=== PATIENT | male | born 1985 | race Caucasian/White ===

== ENCOUNTER 2017-10-02 10:31 | Inpatient (IN) | payer SELFPAY ==
--- NOTE | 2017-10-02 11:11 | ER Document Report ---
ED General - General Chief Complaint: Chest Pain Stated Complaint: BREATHING ISSUES Time Seen by Provider: 10/02/17 10:52 Mode of Arrival: Ambulatory Information source: Patient Notes: 32-year-old male presents with complaints of shortness of breath over the past 3 -4 days associated with chest pain chest tightness. Patient admits to productive cough. He denies any DVT or PE risk factors except that he travels an hour and a half daily back and forth to work TRAVEL OUTSIDE OF THE [place] IN LAST 30 DAYS: No - HPI Onset: Last week Onset/Duration: Persistent Quality of pain: Achy, Pressure Severity: Moderate Pain Level: 3 Associated symptoms: Chest pain, Productive cough, Shortness of breath Exacerbated by: Movement, Walking Relieved by: Denies Similar symptoms previously: No Recently seen / treated by doctor: No - Related Data Allergies/Adverse Reactions: No Known Allergies Allergy (Unverified 10/02/17 10:33) Past Medical History - Social History Smoking Status: Never Smoker Cigarette use (# per day): No Chew tobacco use (# tins/day): No Smoking Education Provided: No Family History: Reviewed & Not Pertinent Review of Systems - Review of Systems Notes: REVIEW OF SYSTEMS: CONSTITUTIONAL : Denies fever, chills, or sweats. Denies recent illness. EENT: Denies eye, ear, throat, or mouth pain or symptoms. Denies nasal or sinus congestion or discharge. Denies throat, tongue, or mouth swelling or difficulty swallowing. CARDIOVASCULAR: Admits to chest pain. RESPIRATORY: Admits cough shortness of breath GASTROINTESTINAL: Denies abdominal pain or distention. Denies nausea, vomiting , or diarrhea. Denies blood in vomitus, stools, or per rectum. Denies black, tarry stools. Denies constipation. GENITOURINARY: Denies difficulty urinating, painful urination, burning, frequency, blood in urine, or discharge. MUSCULOSKELETAL: Denies back or neck pain or stiffness. Denies joint pain or swelling. SKIN: Denies rash, lesions or sores. HEMATOLOGIC : Denies easy bruising or bleeding. LYMPHATIC: Denies swollen, enlarged glands. NEUROLOGICAL: Denies confusion or altered mental status. Denies passing out or loss of consciousness. Denies dizziness or lightheadedness. Denies headache. Denies weakness or paralysis or loss of use of either side. Denies problems with gait or speech. Denies sensory loss, numbness, or tingling. Denies seizures. PSYCHIATRIC: Denies anxiety or stress. Denies depression, suicidal ideation, or homicidal ideation. ALL OTHER SYSTEMS REVIEWED AND NEGATIVE. Dictation was performed using [employer] voice recognition software PHYSICAL EXAMINATION: GENERAL: Well-appearing, well-nourished and in no acute distress. HEAD: Atraumatic, normocephalic. EYES: Pupils equal round and reactive to light, extraocular movements intact, sclera anicteric, conjunctiva are normal. ENT: Nares patent, oropharynx clear without exudates. Moist mucous membranes. NECK: Normal range of motion, supple without lymphadenopathy LUNGS: Intermittent rhonchi HEART: Tachycardic ABDOMEN: Soft, nontender, nondistended abdomen. No guarding, no rebound. No masses appreciated. Musculoskeletal: Normal range of motion, no pitting or edema. No cyanosis. NEUROLOGICAL: Cranial nerves grossly intact. Normal speech, normal gait. Normal sensory, motor exams PSYCH: Normal mood, normal affect. SKIN: Warm, Dry, normal turgor, no rashes or lesions noted. Physical Exam - Vital signs Vitals: Temp Pulse Resp BP Pulse Ox 98.2 F 122 H 26 H 161/92 H 83 L 10/02/17 10:40 10/02/17 10:40 10/02/17 10:40 10/02/17 10:40 10/02/17 10:40 Course - Re-evaluation Re-evalutation: 10/02/17 11:20 EKG is consistent with sinus tachycardia rate 124 QT is 324 QTc 466, patient is noted to have signs of LVH Given the patient hypoxemia tachycardia tachypnea my initial concern is for a pulmonary emboli, given the high risk of this and elevated troponin with no dissection noted on the chest x-ray heparin bolus and drip was started high-dose 10/02/17 13:[address] Gregory, he will consult given the CT findings which notes diffuse pulmonary nodules, this may be atypical pneumonia patient will be started on antibiotics at this time 10/02/17 14:45 Patient admitted as sepsis - Vital Signs Vital signs: Temp Pulse Resp BP Pulse Ox 98.2 F 122 H 39 H 175/93 H 95 10/02/17 10:40 10/02/17 10:40 10/02/17 10:57 10/02/17 10:57 10/02/17 10:57 - Laboratory Result Diagrams: 10/02/17 14:09 10/02/17 10:53 Laboratory results interpreted by me: 10/02/17 10/02/17 10/02/17 10:53 10:53 10:53 WBC 17.3 H RDW 14.7 H Seg Neutrophils % 82.5 H Lymphocytes % 9.9 L Absolute Neutrophils 14.3 H Creatine Kinase 1029 H CK-MB (CK-2) 16.00 H NT-Pro-B Natriuret Pep 1170 H - Diagnostic Test Radiology reviewed: Image reviewed - CTA consistent with atypical pneumonia, Reports reviewed Critical Care Note - Critical Care Note Total time excluding time spent on procedures (mins): 55 Comments: 55 minutes of critical care time spent in direct contact evaluating and reevaluating the patient, treating symptoms, reviewing labs and studies and speaking with family and consultants excluding any procedures Discharge - Discharge Clinical Impression: Hypoxemia Sepsis Qualifiers: Sepsis type: sepsis due to unspecified organism Qualified Code(s): A41.9 - Sepsis, unspecified organism Pneumonia Qualifiers: Pneumonia type: due to unspecified organism Laterality: bilateral Lung location : unspecified part of lung Qualified Code(s): J18.9 - Pneumonia, unspecified organism Condition: Stable Disposition: ADMITTED INPATIENT Admitting Provider: Hospitalist Unit Admitted: [facility]
[2017-10-02 11:26] LABS: ABSOLUTE BASOPHILS # (AUTO) 0.1 10^3/uL (0.0-0.2); ABSOLUTE LYMPHOCYTES (AUTO) 1.7 10^3/uL (0.5-4.7); ABSOLUTE MONOCYTES (AUTO) 1.2 10^3/uL (0.1-1.4); ABSOLUTE NEUT (AUTO) 14.3 10^3/uL (1.7-8.2); BASOPHILS % (AUTO) 0.6 % (0-2); HEMATOCRIT 43.5 % (37.9-51.0); HEMOGLOBIN 14.4 g/dL (13.5-17.0); LYMPHOCYTES % (AUTO) 9.9 % (13-45); MEAN CORPUSCULAR HEMOGLOBIN 27.7 pg (27.0-33.4); MEAN CORPUSCULAR HGB CONC 33.2 g/dL (32.0-36.0); MEAN CORPUSCULAR VOLUME 84 fl (80-97); PLATELET COUNT 373 10^3/uL (150-450); RED BLOOD COUNT 5.21 10^6/uL (4.35-5.55); RED CELL DISTRIBUTION WIDTH 14.7 % (11.5-14.0); SEGMENTED NEUTROPHILS % (AUTO) 82.5 % (42-78); TOTAL CELLS COUNTED % (AUTO) 100 %; WHITE BLOOD COUNT 17.3 10^3/uL (4.0-10.5)
[2017-10-02 11:45] LABS: ALANINE AMINOTRANSFERASE 43 U/L (21-72); ALBUMIN 3.7 g/dL (3.5-5.0); ALKALINE PHOSPHATASE 78 U/L (38-126); ANION GAP 13 (5-19); ASPARTATE AMINO TRANSFERASE 55 U/L (17-59); BILIRUBIN,DIRECT 0.4 mg/dL (0.0-0.4); BILIRUBIN,TOTAL 0.7 mg/dL (0.2-1.3); BLOOD UREA NITROGEN 10 mg/dL (7-20); CALCIUM 9.2 mg/dL (8.4-10.2); CARBON DIOXIDE 25 mmol/L (22-30); CHLORIDE 101 mmol/L (98-107); CREATINE KINASE 1029 U/L (55-170); GLUCOSE 108 mg/dL (75-110); POTASSIUM 4.5 mmol/L (3.6-5.0); SODIUM 138.9 mmol/L (137-145); TOTAL PROTEIN 6.8 g/dL (6.3-8.2)
[2017-10-02 12:00] LABS: TROPONIN I 0.27 ng/mL
[2017-10-02] MEDS ORDERED: HEPARIN SOD (PORCINE) 1,000 UNIT/ML 10 ML VIAL IV ONE (12:14)
[2017-10-02] MEDS ORDERED: HEPARIN SODIUM,PORCINE/D5W 25,000 UNIT/250 ML RTUINJ IV PRN (12:14)
--- NOTE | 2017-10-02 12:33 | RADIOLOGY REPORT (SQ) ---
EXAM DESCRIPTION: CHEST SINGLE VIEW COMPLETED DATE/TIME: 10/02/2017 12:24 pm REASON FOR STUDY: difficulty breathing COMPARISON: None. EXAM PARAMETERS: NUMBER OF VIEWS: One view. TECHNIQUE: Single frontal radiographic view of the chest acquired. RADIATION DOSE: NA LIMITATIONS: None. FINDINGS: LUNGS AND PLEURA: Diffuse parenchymal opacities throughout both lungs with a somewhat nodu lar appearance. No effusions. No pneumothorax. MEDIASTINUM AND HILAR STRUCTURES: No masses. Contour normal. HEART AND VASCULAR STRUCTURES: Heart is enlarged with vascular congestion. BONES: No acute findings. HARDWARE: None in the chest. OTHER: No other significant finding. IMPRESSION: Extensive diffuse parenchymal opacities with a nodular appearance. Differential is pneu monia, pulmonary edema, or diffuse pulmonary nodules such is metastatic disease. TECHNICAL DOCUMENTATION: JOB ID: [id number] [employer]- All Rights Reserved Reading location - IP/workstation name: [email or web address]
[2017-10-02] MEDS ORDERED: CEFTRIAXONE INJ 1000 MG VIAL IV ONE (13:13)
[2017-10-02] MEDS ORDERED: NORMAL SALINE 1000 ML 1,000 ML IV PRN ×3 (13:22→14:01)
--- NOTE | 2017-10-02 13:35 | RADIOLOGY REPORT (SQ) ---
EXAM DESCRIPTION: CTA CHEST COMPLETED DATE/TIME: 10/02/2017 12:55 pm REASON FOR STUDY: sob, hypoxemia COMPARISON: None. TECHNIQUE: CT scan of the chest performed using helical scanning technique with dynamic intravenous contrast injection. Images reviewed with lung, soft tissue and bone windows. Reconstructed coronal and sagittal MPR images reviewed. Additional 3 dimensional post-processing performed to develop Maximal Intensity Projection images (RI P). All images stored on PACS. All CT scanners at this facility use dose modulation, iterative reconstruction, and/or weight based d osing when appropriate to reduce radiation dose to as low as reasonably achievable (ALARA). [facility]: Dose Right [facility]: CareDose [facility]: Dose Right [facility]: Teradose 4D [facility]: Spayee CONTRAST TYPE AND DOSE: Isovue 370. 85 mL. Contrast bolus optimized for the pulmonary arteries. Not diagnostic for the aorta. RENAL FUNCTION: Creatinine: 1.0. RADIATION DOSE: 1468.5 LIMITATIONS: None. FINDINGS: LUNGS AND PLEURA: There are diffuse bilateral perihilar infiltrates with nodularity and fo mariola areas of consolidation noted. There is no significant air trapping identified. There is subpleu ral sparing noted. Differential and considerations include infectious etiologies, pulmonary edema an d/or ARDS. Small pleural effusions. AORTA AND GREAT VESSELS: No aneurysm. Contrast bolus not optimized for the aorta. HEART: No pericardial effusion. No significant coronary artery calcifications. PULMONARY ARTERIES: No emboli visualized in the main pulmonary arteries or the segmental branches. HILAR AND MEDIASTINAL STRUCTURES: No identified masses or abnormal nodes. HARDWARE: None in the chest. UPPER ABDOMEN: The liver, spleen, adrenals demonstrate no abnormality. THYROID AND OTHER SOFT TISSUES: No masses. No adenopathy. BONES: No acute or significant finding. 3D MIPS: Confirm above findings. OTHER: No other significant finding. IMPRESSION: Bilateral diffuse pulmonary infiltrates with nodularity in consolidation. Differential considerations include infectious etiologies, pulmonary edema or ARDS. Hypersensitivity pneumonitis considered less likely given absence of air trapping. COMMENT: Quality ID # [id number]: Final reports with documentation of one or more dose reduction techniques (e.g., Automated exposure control, adjustment of the mA and/or kV according to patient size, use of iterative reconstruction technique) TECHNICAL DOCUMENTATION: JOB ID: [id number] 2010 [employer]- All Rights Reserved Reading location - IP/workstation name: [email or web address]
[2017-10-02] MEDS ORDERED: ONDANSETRON HCL INJ/PF 4 MG/2 ML SDV IV PRN (14:06)
[2017-10-02] MEDS ORDERED: ONDANSETRON 4 MG TAB.RAPDIS PO PRN (14:06)
[2017-10-02 14:38] LABS: INTERNATIONAL RATION (INR) 1.08; PROTHROMBIN TIME 14.6 SEC (11.4-15.4)
[2017-10-02 14:43] LABS: ABSOLUTE BASOPHILS # (AUTO) 0.1 10^3/uL (0.0-0.2); ABSOLUTE LYMPHOCYTES (AUTO) 1.8 10^3/uL (0.5-4.7); BASOPHILS % (AUTO) 0.4 % (0-2); EOSINOPHILS % (AUTO) 0.1 % (0-6); HEMOGLOBIN 14.3 g/dL (13.5-17.0); LYMPHOCYTES % (AUTO) 10.5 % (13-45); MEAN CORPUSCULAR HEMOGLOBIN 27.3 pg (27.0-33.4); MEAN CORPUSCULAR HGB CONC 32.6 g/dL (32.0-36.0); MEAN CORPUSCULAR VOLUME 84 fl (80-97); MONOCYTES % (AUTO) 6.2 % (3-13); PLATELET COUNT 350 10^3/uL (150-450); RED BLOOD COUNT 5.25 10^6/uL (4.35-5.55); SEGMENTED NEUTROPHILS % (AUTO) 82.8 % (42-78); TOTAL CELLS COUNTED % (AUTO) 100 %; WHITE BLOOD COUNT 16.8 10^3/uL (4.0-10.5)
[2017-10-02 15:00] LABS: PARTIAL THROMBOPLASTIN TIME 156.3 SEC (23.5-35.8)
[2017-10-02] MEDS ORDERED: FAMOTIDINE 20 MG TABLET PO ONE (15:00)
[2017-10-02] MEDS ORDERED: PHARMACY COMMUNICATION ORDER MC NR (15:00)
--- NOTE | 2017-10-02 15:00 | PDOC H&P ---
History of Present Illness Admission Date/PCP: 10/02/17 13:26 Patient complains of: Shortness of breath and cough History of Present Illness: 32-year-old male with no past medical history no medications who presented to the hospital with a 2 day history of sudden onset shortness of breath, dry cough and chest tightness. He reports feeling feverish. 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 Does not smoke. Denies any chemical or smoke exposure. No associated joint swelling pain or rash. In the emergency room he was found to have diffuse infiltrates on chest x-ray. CT angiogram of the chest did not show pulmonary embolism. He was treated with IV fluids and Rocephin. He was started on a heparin drip due to suspected PE. This was discontinued. Past Medical History Medical History: None Social History Information Source: Patient Smoking Status: Never Smoker Frequency of Alcohol Use: None Drugs: None Family History Family History: DM Parental Family History Reviewed: Yes Children Family History Reviewed: Yes Sibling(s) Family History Reviewed.: Yes Medication/Allergy Allergies/Adverse Reactions: No Known Allergies Allergy (Unverified 10/02/17 10:33) Review of Systems Constitutional: PRESENT: chills Eyes: ABSENT: visual disturbances Ears: ABSENT: hearing changes Nose, Mouth, and Throat: ABSENT: sore throat Cardiovascular: PRESENT: dyspnea on exertion. ABSENT: orthropnea Respiratory: PRESENT: cough, dyspnea. ABSENT: hemoptysis Gastrointestinal: ABSENT: abdominal pain, nausea, vomiting Genitourinary: ABSENT: dysuria Musculoskeletal: ABSENT: joint swelling, muscle weakness Integumentary: ABSENT: rash Neurological: ABSENT: focal weakness Psychiatric: ABSENT: hallucinations Endocrine: ABSENT: heat intolerance Hematologic/Lymphatic: ABSENT: easy bleeding, easy bruising Allergic/Immunologic: ABSENT: seasonal rhinorrhea Physical Exam Vital Signs: Temp Pulse Resp BP Pulse Ox 98.2 F 122 H 39 H 175/93 H 95 10/02/17 10:40 10/02/17 10:40 10/02/17 10:57 10/02/17 10:57 10/02/17 10:57 General appearance: PRESENT: no acute distress Head exam: PRESENT: normocephalic Eye exam: PRESENT: PERRLA. ABSENT: scleral icterus Ear exam: PRESENT: normal external ear exam Mouth exam: PRESENT: moist Throat exam: ABSENT: tonsillar exudate Neck exam: ABSENT: tracheal deviation Respiratory exam: PRESENT: rhonchi, symmetrical, other - coarse breath sounds b/ l Cardiovascular exam: PRESENT: RRR, tachycardia GI/Abdominal exam: PRESENT: normal bowel sounds, soft. ABSENT: tenderness Rectal exam: PRESENT: deferred Gentrourinary exam: ABSENT: indwelling catheter Extremities exam: ABSENT: joint swelling, pedal edema Musculoskeletal exam: PRESENT: normal inspection Neurological exam: PRESENT: alert, awake, oriented to person, oriented to place , oriented to time, oriented to situation Psychiatric exam: PRESENT: appropriate affect Skin exam: ABSENT: rash Results Impressions: Chest X-Ray 10/02/17 00:00 IMPRESSION: Extensive diffuse parenchymal opacities with a nodular appearance. Differential is pneumonia, pulmonary edema, or diffuse pulmonary nodules such is metastatic disease. Chest/Abdomen CTA 10/02/17 10:53 IMPRESSION: Bilateral diffuse pulmonary infiltrates with nodularity in consolidation. Differential considerations include infectious etiologies, pulmonary edema or ARDS. Hypersensitivity pneumonitis considered less likely given absence of air trapping. Assessment & Plan - Diagnosis (1) Acute respiratory failure with hypoxia Is this a current diagnosis for this admission?: Yes Plan: See below (2) Bilateral pneumonia Qualifiers: Pneumonia type: due to unspecified organism Lung location: unspecified part of lung Qualified Code(s): J18.9 - Pneumonia, unspecified organism Is this a current diagnosis for this admission?: Yes Plan: Differential includes hypersensitivity pneumonitis. Continue Rocephin. Add Levaquin. Check urine Legionella antigen, AUGUST[place], RF, pro-calcitonin. Supplemental oxygen, sputum culture, blood culture, pulmonology consult. Place PPD. (3) Sinus tachycardia Is this a current diagnosis for this admission?: Yes Plan: Due to pneumonia. - Time Time Spent: Greater than 70 Minutes - Inpatient Certification Medical Necessity: Need Close Monitoring Due to Risk of Patient Decompensation, Need For IV Fluids, Need for IV Antibiotics
[2017-10-02] MEDS ORDERED: HEPARIN SOD (PORCINE) 1,000 UNIT/ML 10 ML VIAL IV PRN (15:15)
--- NOTE | 2017-10-02 15:54 | EKG REPORT ---
SEVERITY:- ABNORMAL ECG - SINUS TACHYCARDIA ABNORMAL T, PROBABLE ISCHEMIA, ANT-LAT LEADS ANTERIOR ST ELEVATION, PROBABLY DUE TO LVH : Confirmed by: Vinay Oviedo MD 02-Oct-2017 15:54:00
[2017-10-02] MEDS ORDERED: TUBERCULIN,PURIF.PROT.DERIV. 5 TU/0.1 ML TEST 1 ML VIAL ID ONE (16:00)
[2017-10-02] MEDS: LEVOFLOXACIN 750 MG/D5W RTU 750 MG/150 ML RTUPB IV SCH (16:38)
[2017-10-02 16:58] LABS: APPEARANCE,URINE CLEAR; BILIRUBIN,URINE SMALL (NEGATIVE); COLOR,URINE AMBER; GLUCOSE, URINE NEGATIVE (NEGATIVE); KETONES,URINE 20 mg/dL (NEGATIVE); LEUKOCYTE ESTERASE,URINE NEGATIVE (NEGATIVE); NITRITE,URINE NEGATIVE (NEGATIVE); PROTEIN,URINE 100 mg/dL (NEGATIVE)
[2017-10-02 17:03] LABS: URINE SPECIFIC GRAVITY > 1.060
[2017-10-02 17:09] LABS: CREATINE KINASE MB 12.9 ng/mL (<4.55)
[2017-10-02 17:15] LABS: TROPONIN I 0.396 ng/mL
[2017-10-02 17:24] LABS: URINE AMPHETAMINES SCREEN NEGATIVE; URINE BARBITURATES SCREEN NEGATIVE; URINE BENZODIAZEPINES SCREEN NEGATIVE; URINE COCAINE SCREEN NEGATIVE; URINE MARIJUANA (THC) SCREEN NEGATIVE; URINE METHADONE SCREEN NEGATIVE; URINE PHENCYCLIDINE SCREEN NEGATIVE
[2017-10-02] MEDS ORDERED: FUROSEMIDE INJ/PF 20 MG/2 ML SDV IV ONE (17:41)
[2017-10-02] MEDS ORDERED: HYDRALAZINE HCL INJ/PF 20 MG/1 ML SDV IV PRN (17:42)
[2017-10-02] MEDS: LACTOBACILLUS ACIDOPHILUS 250 MG TAB PO SCH (18:10)
--- NOTE | 2017-10-02 19:27 | PDOC CONSULTATION ---
Consultation Consult Date: 10/02/17 Attending physician:: HANS PRABHAKAR Consult reason:: distress/pna/sepsis History of Present Illness Admission Date/PCP: 10/02/17 13:26 History of Present Illness: ZULEIMA BAILEY is a 32 year old male;who presented to the emergency room after 2 days of progressive shortness of breath admits to fevers chills and weakness after the first day he was called and from work, he would not report to work however he continued to feel worse he did have a productive cough yellow phlegm and has had some streaks of blood in it no hannah hemoptysis he has had a negative PPD. PPD but is not aware of when has no history of chronic lung disease as a child or adolescent he admits to exposure to passive smoke as a child as well as an adult. He says he has never smoked. 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 He denies any recent travel has no pets he says occasional tightness in his chest since the illness since onset of illness sleeps on 2 pillows no PND occasional nocturnal cough for the last 2 days since onset of illness and intermittent episodes of anemia. He admits to snoring restless sleep nocturia 1-2 times per night sometimes unrestful sleep and daytime somnolence. Past Medical History Cardiac Medical History: Denies: Atrial Fibrillation, Congestive Heart Failure, Coronary Artery Disease, DVT, Heart Murmur Pulmonary Medical History: Denies: Asthma, Intubation EENT Medical History: Denies: Cataracts, Ears, Throat Neurological Medical History: Denies: Hemorrhagic CVA, Ischemic CVA, Multiple Sclerosis, Seizures Endocrine Medical History: Reports: Obesity Denies: Diabetes Mellitus Type 2, Hyperthyroidism, Hypothyroidism Renal/ Medical History: Denies: Chronic Kidney Disease, End Stage Renal Disease, Nephrolithiasis Malignancy Medical History: Reports: None GI Medical History: Reports: Gastroesophageal Reflux Disease Denies: Cirrhosis, Crohn's Disease, Peptic Ulcer Disease, Ulcerative Colitis Musculoskeltal Medical History: Denies: Arthritis, Gout Skin Medical History: Denies: Eczema, Psoriasis Psychiatric Medical History: Denies: Dementia, Depression, Post Traumatic Stress Disorder Traumatic Medical History: Denies: Pneumothorax, Stab Wound, Traumatic Brain Injury Hematology: Denies: Anemia, Sickle Cell Disease Infectious Medical History: Denies: Hepatitis B, Hepatitis C Past Surgical History Past Surgical History: Reports: None Social History Information Source: Patient, [facility] Records Lives with: Family Smoking Status: Never Smoker Passive smoke exposure as: Both Frequency of Alcohol Use: Social Hx Recreational Drug Use: No Drugs: None Hx Prescription Drug Abuse: No Do you have pets?: No Have you had any respiratory illnesses as a child?: No Have you been exposed to any sick contacts recently?: No Have you had any recent respiratory illnesses?: No Have you travelled outside of [place] in the past 12 months?: No Family History Family History: DM Parental Family History Reviewed: Yes Children Family History Reviewed: Yes Sibling(s) Family History Reviewed.: Yes Medication/Allergy Home Medications: No Home Medications 10/02/17 Allergies/Adverse Reactions: No Known Allergies Allergy (Unverified 10/02/17 10:33) Review of Systems Constitutional: ABSENT: fever(s), headache(s), night sweats Eyes: ABSENT: visual disturbances Ears: ABSENT: hearing changes Nose, Mouth, and Throat: ABSENT: sore throat Cardiovascular: ABSENT: dyspnea on exertion, edema, orthropnea, palpitations Respiratory: ABSENT: dyspnea, hemoptysis Gastrointestinal: ABSENT: abdominal pain, bloating, coffee ground emesis, hematochezia, melena Genitourinary: ABSENT: dysuria, hematuria Neurological: ABSENT: abnormal gait, abnormal movements, abnormal speech, confusion, convulsions, focal weakness, frequent falls, lack of coordination, memory loss Psychiatric: ABSENT: hallucinations, homidical ideation, suicidal ideation Endocrine: ABSENT: cold intolerance, heat intolerance, polydipsia, polyuria Hematologic/Lymphatic: ABSENT: easy bruising, lymphadenopathy Physical Exam Vital Signs: Temp Pulse Resp BP Pulse Ox 98.4 F 118 H 36 H 180/92 H 92 10/02/17 17:22 10/02/17 17:22 10/02/17 17:22 10/02/17 17:22 10/02/17 17:22 Intake & Output 10/01/17 10/02/17 10/03/17 06:59 06:59 06:59 Intake Total 120 Output Total 320 Balance -200 Weight 126.6 kg General appearance: PRESENT: cooperative, disheveled, mild distress, morbidly obese Head exam: PRESENT: atraumatic, normocephalic Eye exam: PRESENT: conjunctiva pale, EOMI. ABSENT: nystagmus, periorbital swelling, scleral icterus Mouth exam: PRESENT: moist, neck supple, tongue midline Neck exam: ABSENT: carotid bruit, JVD, lymphadenopathy, thyromegaly, tracheal deviation, tracheostomy Respiratory exam: PRESENT: decreased breath sounds, prolonged expiratory phas, rales, rhonchi, symmetrical, tachypnea, unlabored. ABSENT: retraction, stridor Cardiovascular exam: PRESENT: RRR, +S1, +S2, tachycardia Pulses: PRESENT: normal radial pulses GI/Abdominal exam: PRESENT: normal bowel sounds, soft Extremities exam: ABSENT: calf tenderness, clubbing, joint swelling Musculoskeletal exam: ABSENT: deformity, dislocation Neurological exam: PRESENT: alert, awake Psychiatric exam: PRESENT: normal mood Skin exam: PRESENT: dry, warm Results Laboratory Results: 10/02/17 14:09 10/02/17 10/02/17 10/02/17 14:09 14:09 16:00 WBC 16.8 H RBC 5.25 Hgb 14.3 Hct 44.0 MCV 84 MCH 27.3 MCHC 32.6 RDW 15.0 H Plt Count 350 Seg Neutrophils % 82.8 H Lymphocytes % 10.5 L Monocytes % 6.2 Eosinophils % 0.1 Basophils % 0.4 Absolute Neutrophils 14.0 H Absolute Lymphocytes 1.8 Absolute Monocytes 1.0 Absolute Eosinophils 0.0 Absolute Basophils 0.1 Lactic Acid 3.2 H Magnesium 2.0 Urine Color Urine Appearance Urine pH Ur Specific [place] Urine Protein Urine Glucose (UA) Urine Ketones Urine Blood Urine Nitrite Ur Leukocyte Esterase Urine WBC (Auto) Urine RBC (Auto) 10/02/17 16:18 WBC RBC Hgb Hct MCV MCH MCHC RDW Plt Count Seg Neutrophils % Lymphocytes % Monocytes % Eosinophils % Basophils % Absolute Neutrophils Absolute Lymphocytes Absolute Monocytes Absolute Eosinophils Absolute Basophils Lactic Acid Magnesium Urine Color EZEKIEL Urine Appearance CLEAR Urine pH 5.0 Ur Specific [place] > 1.060 Urine Protein 100 H Urine Glucose (UA) NEGATIVE Urine Ketones 20 H Urine Blood NEGATIVE Urine Nitrite NEGATIVE Ur Leukocyte Esterase NEGATIVE Urine WBC (Auto) 2 Urine RBC (Auto) 1 10/02/17 10/02/17 16:00 16:00 Creatine Kinase 785 H CK-MB (CK-2) 12.90 H Troponin I 0.396 Impressions: Chest X-Ray 10/02/17 00:00 IMPRESSION: Extensive diffuse parenchymal opacities with a nodular appearance. Differential is pneumonia, pulmonary edema, or diffuse pulmonary nodules such is metastatic disease. Chest/Abdomen CTA 10/02/17 10:53 IMPRESSION: Bilateral diffuse pulmonary infiltrates with nodularity in consolidation. Differential considerations include infectious etiologies, pulmonary edema or ARDS. Hypersensitivity pneumonitis considered less likely given absence of air trapping. Assessment & Plan - Diagnosis (1) Acute respiratory failure with hypoxia Is this a current diagnosis for this admission?: Yes Plan: No ABG thus far we will get ABG immediately transferred to ICU his heart rate and respiratory rate are not stable vital signs Initiate treatment with BiPAP 50% O2 continuous SaO2 monitoring and was for mechanical ventilation if necessary (2) Pneumonia Qualifiers: Pneumonia type: due to unspecified organism Laterality: bilateral Lung location: unspecified part of lung Qualified Code(s): J18.9 - Pneumonia, unspecified organism Is this a current diagnosis for this admission?: Yes Plan: Diffuse check mycoplasma and Legionella start chest physiotherapy N- acetylcysteine hopefully to be able to get a specimen without bronchoscopy but if necessary will initiate bronchoscopy (3) Sepsis Qualifiers: Sepsis type: sepsis due to unspecified organism Qualified Code(s): A41.9 - Sepsis, unspecified organism Is this a current diagnosis for this admission?: Yes Plan: Fever elevated white count tachycardia tachypnea (4) Sinus tachycardia Is this a current diagnosis for this admission?: Yes - Time Total Critical Time (Minutes): 85
[2017-10-02] MEDS ORDERED: ALBUTEROL SULFATE 0.042% NEB (1.25 MG/3 ML) AMPUL NEB SCH (20:00)
[2017-10-02] MEDS: ACETYLCYSTEINE 20% SOLN 800 MG/4 ML VIAL.NEB NEB SCH (21:04)
[2017-10-02 21:37] LABS: ARTERIAL BLOOD BASE EXCESS 0 mmol/L; ARTERIAL BLOOD H2CO3 0.88 mmol/L (1.05-1.35); ARTERIAL BLOOD O2 SATURATION 97.3 % (94-98); ARTERIAL BLOOD PCO2 29.1 mmHg (35-45); ARTERIAL BLOOD PO2 85.5 mmHg (80-100); ARTERIAL BLOOD TOTAL CO2 22.9 mmol/L (23-27)
[2017-10-02 21:38] LABS: ARTERIAL BLOOD FIO2 30%
[2017-10-02 21:51] LABS: CREATINE KINASE MB 12.1 ng/mL (<4.55); TROPONIN I 0.273 ng/mL
[2017-10-02] MEDS: FAMOTIDINE 20 MG TABLET PO SCH (21:58)
[2017-10-03 01:14] LABS: A TYPE INFLUENZA AG NEGATIVE (NEGATIVE); B INFLUENZA AG NEGATIVE (NEGATIVE)
[2017-10-03 02:50] LABS: ABSOLUTE BASOPHILS # (AUTO) 0.1 10^3/uL (0.0-0.2); ABSOLUTE EOSINOPHILS # (AUTO) 0.1 10^3/uL (0.0-0.6); ABSOLUTE MONOCYTES (AUTO) 1.1 10^3/uL (0.1-1.4); ABSOLUTE NEUT (AUTO) 9.8 10^3/uL (1.7-8.2); BASOPHILS % (AUTO) 0.6 % (0-2); EOSINOPHILS % (AUTO) 0.4 % (0-6); HEMATOCRIT 42.4 % (37.9-51.0); HEMOGLOBIN 14.1 g/dL (13.5-17.0); LYMPHOCYTES % (AUTO) 15.2 % (13-45); MEAN CORPUSCULAR HEMOGLOBIN 27.6 pg (27.0-33.4); MEAN CORPUSCULAR HGB CONC 33.2 g/dL (32.0-36.0); MEAN CORPUSCULAR VOLUME 83 fl (80-97); MONOCYTES % (AUTO) 8.3 % (3-13); PLATELET COUNT 298 10^3/uL (150-450); RED BLOOD COUNT 5.08 10^6/uL (4.35-5.55); RED CELL DISTRIBUTION WIDTH 14.7 % (11.5-14.0); SEGMENTED NEUTROPHILS % (AUTO) 75.5 % (42-78); TOTAL CELLS COUNTED % (AUTO) 100 %
[2017-10-03 03:10] LABS: ANION GAP 11 (5-19); BLOOD UREA NITROGEN 12 mg/dL (7-20); CARBON DIOXIDE 26 mmol/L (22-30); CHLORIDE 103 mmol/L (98-107); GLUCOSE 109 mg/dL (75-110); PHOSPHORUS 3.8 mg/dL (2.5-4.5); POTASSIUM 4.5 mmol/L (3.6-5.0); SODIUM 140.3 mmol/L (137-145)
[2017-10-03 03:25] LABS: TROPONIN I 0.279 ng/mL
[2017-10-03 03:30] LABS: FREE T4 (FREE THYROXINE) 0.6 ng/dL (0.78-2.19)
[2017-10-03 03:44] LABS: THYROID STIMULATING HORMONE 0.96 uIU/mL (0.47-4.68)
[2017-10-03 06:19] LABS: ARTERIAL BLOOD BASE EXCESS 2.7 mmol/L; ARTERIAL BLOOD H2CO3 1.17 mmol/L (1.05-1.35); ARTERIAL BLOOD HCO3 26.7 mmol/L (20-26); ARTERIAL BLOOD O2 SATURATION 98.9 % (94-98); ARTERIAL BLOOD PCO2 38.8 mmHg (35-45); ARTERIAL BLOOD PH 7.46 (7.35-7.45); ARTERIAL BLOOD PO2 138.5 mmHg (80-100); ARTERIAL BLOOD TOTAL CO2 27.9 mmol/L (23-27)
[2017-10-03 06:20] LABS: ARTERIAL BLOOD FIO2 50%
--- NOTE | 2017-10-03 08:13 | RADIOLOGY REPORT (SQ) ---
EXAM DESCRIPTION: CHEST SINGLE VIEW COMPLETED DATE/TIME: 10/03/2017 7:14 am REASON FOR STUDY: diffuse pneumonia COMPARISON: 10/02/2017 EXAM PARAMETERS: NUMBER OF VIEWS: One view. TECHNIQUE: Single frontal radiographic view of the chest acquired. RADIATION DOSE: NA LIMITATIONS: None. FINDINGS: LUNGS AND PLEURA: Stable multifocal airspace disease. MEDIASTINUM AND HILAR STRUCTURES: Stable in size and contour. HEART AND VASCULAR STRUCTURES: Heart stable in size. Normal vasculature. BONES: No acute findings. HARDWARE: None in the chest. OTHER: No other significant finding. IMPRESSION: STABLE APPEARANCE OF THE CHEST WITH SEVERE DIFFUSE MULTIFOCAL AIRSPACE DISEASE. TECHNICAL DOCUMENTATION: JOB ID: [id number] [employer]- All Rights Reserved Reading location - IP/workstation name: [email or web address]
[2017-10-03] MEDS: ACETYLCYSTEINE 20% SOLN 800 MG/4 ML VIAL.NEB NEB SCH ×2 (09:03→20:26)
--- NOTE | 2017-10-03 09:29 | XCELERA REPORT ---
[address] [address] Transthoracic Echocardiogram Report Name: ZULEIMA BAILEY Age: 32 yrs Gender: Male : 1985 Patient Status: Inpatient Patient Location: ICU^[id number] Study Date: 10/02/2017 08:39 PM Height: 65 in Weight: 279 lb BSA: 2.3 m2 Procedure: A complete two-dimensional transthoracic echocardiogram was performed (2D, M-mode, spectral and color flow Doppler). The study was technically adequate with some images being suboptimal in quality. Reason For Study: LV EF Ordering Physician: NATALIE JAMES Performed By: Kelley Sanchez Interpretation Summary The left ventricular ejection fraction is normal. There is moderate concentric left ventricular hypertrophy. Doppler measurements suggest pseudonormalized left ventricular relaxation, which is associated with grade II/IV or mild to moderate diastolic dysfunction The left ventricle is grossly normal size. Wall motion cannot be accurately commented on, but no definite regional wall motion abnormalities noted. Borderline right ventricular enlargement. The right ventricular systolic function is normal. The right atrium is normal in size The left atrial size is normal. There is a trace amount of mitral regurgitation There is no mitral valve stenosis. There is a trace amount of aortic regurgitation There is no aortic valve stenosis There is no tricuspid stenosis. There is a trace or physiologic amount of tricuspid regurgitation The aortic root is not well visualized but is probably normal size. The inferior vena cava appeared normal and decreased > 50% with respiration (RAP 5-10 mmHg) There is no pericardial effusion. MMode/2D Measurements & Calculations RVDd: 3.4 cm LVIDd: 4.2 cm FS: 29.8 % Ao root diam: 2.8 cm IVSd: 1.3 cm LVIDs: 3.0 cm EDV(Teich): 79.8 ml LVPWd: 1.3 cm ESV(Teich): 34.1 ml Ao root area: 6.2 cm2 EF(Teich): 57.2 % LA dimension: 3.2 cm Doppler Measurements & Calculations MV E max tati: MV P1/2t max tati: Ao V2 max: LV V1 max P.0 cm/sec 99.3 cm/sec 153.2 cm/sec 9.4 mmHg MV A max tati: MV P1/2t: 42.0 msec Ao max PG: LV V1 max: 93.2 cm/sec 9.4 mmHg 153.6 cm/sec MV E/A: 1.1 MVA(P1/2t): 5.2 cm2 MV dec slope: 692.4 cm/sec2 MV dec time: 0.14 sec PA V2 max: TR max tati: 139.4 cm/sec 209.0 cm/sec PA max P.8 mmHgTR max P.5 mmHg Left Ventricle The left ventricle is grossly normal size. There is moderate concentric left ventricular hypertrophy. The left ventricular ejection fraction is normal. Doppler measurements suggest pseudonormalized left ventricular relaxation, which is associated with grade II/IV or mild to moderate diastolic dysfunction. Wall motion cannot be accurately commented on, but no definite regional wall motion abnormalities noted. Right Ventricle Borderline right ventricular enlargement. There is normal right ventricular wall thickness. The right ventricular systolic function is normal. Atria The right atrium is normal in size. The left atrial size is normal. Interarterial septum not well visualized and not well dopplered. Cannot comment on ASD/PFO presence. Mitral Valve The mitral valve is grossly normal. There is no mitral valve stenosis. There is a trace amount of mitral regurgitation. Aortic Valve The aortic valve opens well. There is no aortic valve stenosis. There is a trace amount of aortic regurgitation. Tricuspid Valve The tricuspid valve is not well visualized secondary to technical limitations. There is no tricuspid stenosis. There is a trace or physiologic amount of tricuspid regurgitation. Pulmonic Valve The pulmonic valve is not well visualized. Great Vessels The aortic root is not well visualized but is probably normal size. The inferior vena cava appeared normal and decreased > 50% with respiration (RAP 5-10 mmHg). Effusions There is no pericardial effusion. : NATALIE JAMES > Casper Espitia
[2017-10-03 09:44] LABS: CREATINE KINASE MB 9.81 ng/mL (<4.55); TROPONIN I 0.189 ng/mL
[2017-10-03] MEDS ORDERED: CEFTRIAXONE 1 GM/D5W RTU 1 GM/50 ML RTUPB IV SCH (10:00)
[2017-10-03] MEDS: LACTOBACILLUS ACIDOPHILUS 250 MG TAB PO SCH ×2 (11:07→17:22)
[2017-10-03] MEDS: FAMOTIDINE 20 MG TABLET PO SCH ×2 (11:07→21:54)
[2017-10-03] MEDS: CEFTRIAXONE SODIUM 1,000 MG in DEXTROSE 5%-WATER 50 ML IV SCH (11:10)
--- NOTE | 2017-10-03 11:15 | PDOC PROGRESS REPORT ---
Subjective Progress Note for:: 10/03/17 Subjective:: Feels better today. No complaints at present. Reason For Visit: PNEUMONIA, ACUTE HYPOXIC RESPIRATORY FAILURE Physical Exam Vital Signs: Temp Pulse Resp BP Pulse Ox 97.2 F 94 29 H 113/52 L 98 10/03/17 10:00 10/03/17 10:00 10/03/17 10:00 10/03/17 10:00 10/03/17 10:00 Intake & Output 10/02/17 10/03/17 10/04/17 06:59 06:59 06:59 Intake Total 120 Output Total 820 Balance -700 Weight 124.4 kg General appearance: PRESENT: obese Head exam: PRESENT: normocephalic Eye exam: PRESENT: PERRLA Ear exam: PRESENT: normal external ear exam Mouth exam: PRESENT: moist Neck exam: ABSENT: tracheal deviation Respiratory exam: PRESENT: symmetrical, other - Coarse breath sounds bilaterally. ABSENT: wheezes Cardiovascular exam: PRESENT: RRR GI/Abdominal exam: PRESENT: normal bowel sounds, soft. ABSENT: tenderness Rectal exam: PRESENT: deferred Extremities exam: ABSENT: pedal edema Musculoskeletal exam: PRESENT: normal inspection Neurological exam: PRESENT: alert, awake, oriented to person, oriented to place Psychiatric exam: PRESENT: appropriate affect Skin exam: ABSENT: rash Results Laboratory Results: 10/03/17 02:34 10/03/17 02:34 10/02/17 10/02/17 10/02/17 14:09 14:09 16:00 WBC 16.8 H RBC 5.25 Hgb 14.3 Hct 44.0 MCV 84 MCH 27.3 MCHC 32.6 RDW 15.0 H Plt Count 350 Seg Neutrophils % 82.8 H Lymphocytes % 10.5 L Monocytes % 6.2 Eosinophils % 0.1 Basophils % 0.4 Absolute Neutrophils 14.0 H Absolute Lymphocytes 1.8 Absolute Monocytes 1.0 Absolute Eosinophils 0.0 Absolute Basophils 0.1 Carbonic Acid HCO3/H2CO3 Ratio ABG pH ABG pCO2 ABG pO2 ABG HCO3 ABG O2 Saturation ABG Base Excess FiO2 Sodium Potassium Chloride Carbon Dioxide Anion Gap BUN Creatinine Est GFR ( Amer) Est GFR (Non-Af Amer) Glucose Lactic Acid 3.2 H Calcium Phosphorus Magnesium 2.0 TSH Free T4 Urine Color Urine Appearance Urine pH Ur Specific [place] Urine Protein Urine Glucose (UA) Urine Ketones Urine Blood Urine Nitrite Ur Leukocyte Esterase Urine WBC (Auto) Urine RBC (Auto) 10/02/17 10/02/17 10/02/17 16:18 21:05 22:45 WBC RBC Hgb Hct MCV MCH MCHC RDW Plt Count Seg Neutrophils % Lymphocytes % Monocytes % Eosinophils % Basophils % Absolute Neutrophils Absolute Lymphocytes Absolute Monocytes Absolute Eosinophils Absolute Basophils Carbonic Acid 0.88 L HCO3/H2CO3 Ratio 25:1 ABG pH 7.50 H ABG pCO2 29.1 L ABG pO2 85.5 ABG HCO3 22.0 ABG O2 Saturation 97.3 ABG Base Excess 0 FiO2 30% Sodium Potassium Chloride Carbon Dioxide Anion Gap BUN Creatinine Est GFR ( Amer) Est GFR (Non-Af Amer) Glucose Lactic Acid 1.9 Calcium Phosphorus Magnesium TSH Free T4 Urine Color EZEKIEL Urine Appearance CLEAR Urine pH 5.0 Ur Specific [place] > 1.060 Urine Protein 100 H Urine Glucose (UA) NEGATIVE Urine Ketones 20 H Urine Blood NEGATIVE Urine Nitrite NEGATIVE Ur Leukocyte Esterase NEGATIVE Urine WBC (Auto) 2 Urine RBC (Auto) 1 10/03/17 10/03/17 10/03/17 02:34 02:34 02:34 WBC 13.0 H RBC 5.08 Hgb 14.1 Hct 42.4 MCV 83 MCH 27.6 MCHC 33.2 RDW 14.7 H Plt Count 298 Seg Neutrophils % 75.5 Lymphocytes % 15.2 Monocytes % 8.3 Eosinophils % 0.4 Basophils % 0.6 Absolute Neutrophils 9.8 H Absolute Lymphocytes 2.0 Absolute Monocytes 1.1 Absolute Eosinophils 0.1 Absolute Basophils 0.1 Carbonic Acid HCO3/H2CO3 Ratio ABG pH ABG pCO2 ABG pO2 ABG HCO3 ABG O2 Saturation ABG Base Excess FiO2 Sodium 140.3 Potassium 4.5 Chloride 103 Carbon Dioxide 26 Anion Gap 11 BUN 12 Creatinine 1.15 Est GFR ( Amer) > 60 Est GFR (Non-Af Amer) > 60 Glucose 109 Lactic Acid Calcium 9.0 Phosphorus 3.8 Magnesium 2.1 TSH 0.96 Free T4 0.60 L Urine Color Urine Appearance Urine pH Ur Specific [place] Urine Protein Urine Glucose (UA) Urine Ketones Urine Blood Urine Nitrite Ur Leukocyte Esterase Urine WBC (Auto) Urine RBC (Auto) 10/03/17 05:52 WBC RBC Hgb Hct MCV MCH MCHC RDW Plt Count Seg Neutrophils % Lymphocytes % Monocytes % Eosinophils % Basophils % Absolute Neutrophils Absolute Lymphocytes Absolute Monocytes Absolute Eosinophils Absolute Basophils Carbonic Acid 1.17 HCO3/H2CO3 Ratio 22:1 ABG pH 7.46 H ABG pCO2 38.8 ABG pO2 138.5 H ABG HCO3 26.7 H ABG O2 Saturation 98.9 H ABG Base Excess 2.7 FiO2 50% Sodium Potassium Chloride Carbon Dioxide Anion Gap BUN Creatinine Est GFR ( Amer) Est GFR (Non-Af Amer) Glucose Lactic Acid Calcium Phosphorus Magnesium TSH Free T4 Urine Color Urine Appearance Urine pH Ur Specific [place] Urine Protein Urine Glucose (UA) Urine Ketones Urine Blood Urine Nitrite Ur Leukocyte Esterase Urine WBC (Auto) Urine RBC (Auto) 10/02/17 10/02/17 10/02/17 16:00 16:00 20:31 Creatine Kinase 785 H 660 H CK-MB (CK-2) 12.90 H Troponin I 0.396 NT-Pro-B Natriuret Pep 10/02/17 10/03/17 10/03/17 20:31 02:34 02:34 Creatine Kinase 523 H CK-MB (CK-2) 12.10 H 10.00 H Troponin I 0.273 0.279 NT-Pro-B Natriuret Pep 10/03/17 10/03/17 10/03/17 02:34 08:43 08:43 Creatine Kinase 413 H CK-MB (CK-2) 9.81 H Troponin I 0.189 NT-Pro-B Natriuret Pep 640 H Impressions: Chest/Abdomen CTA 10/02/17 10:53 IMPRESSION: Bilateral diffuse pulmonary infiltrates with nodularity in consolidation. Differential considerations include infectious etiologies, pulmonary edema or ARDS. Hypersensitivity pneumonitis considered less likely given absence of air trapping. Chest X-Ray 10/03/17 06:00 IMPRESSION: STABLE APPEARANCE OF THE CHEST WITH SEVERE DIFFUSE MULTIFOCAL AIRSPACE DISEASE. Assessment & Plan - Diagnosis (1) Acute respiratory failure with hypoxia Is this a current diagnosis for this admission?: Yes Plan: See below (2) Bilateral pneumonia Qualifiers: Pneumonia type: due to unspecified organism Lung location: unspecified part of lung Qualified Code(s): J18.9 - Pneumonia, unspecified organism Is this a current diagnosis for this admission?: Yes Plan: Differential includes hypersensitivity pneumonitis. Day 2 Rocephin and Levaquin. Check urine Legionella antigen, [place], RF, pro-calcitonin. Supplemental oxygen, sputum culture, blood culture, pulmonology consult appreciated. Place PPD. Check Echo to evaluate LV function (3) Sinus tachycardia Is this a current diagnosis for this admission?: Yes Plan: Due to pneumonia. - Time Time Spent with patient: 35 or more minutes
--- NOTE | 2017-10-03 11:20 | PDOC PROGRESS REPORT ---
Subjective Progress Note for:: 10/03/17 Subjective:: resting Reason For Visit: PNEUMONIA, ACUTE HYPOXIC RESPIRATORY FAILURE Physical Exam Vital Signs: Temp Pulse Resp BP Pulse Ox 98.6 F 118 H 26 H 157/78 H 95 10/03/17 06:00 10/03/17 03:57 10/03/17 07:31 10/03/17 07:31 10/03/17 07:31 Intake & Output 10/02/17 10/03/17 10/04/17 06:59 06:59 06:59 Intake Total 120 Output Total 820 Balance -700 Weight 124.4 kg General appearance: PRESENT: no acute distress, cooperative, disheveled, morbidly obese Head exam: PRESENT: atraumatic, normocephalic Eye exam: PRESENT: conjunctiva pale, EOMI. ABSENT: nystagmus, periorbital swelling, scleral icterus Mouth exam: PRESENT: moist, neck supple, tongue midline Neck exam: ABSENT: carotid bruit, JVD, lymphadenopathy, thyromegaly, tracheal deviation, tracheostomy Respiratory exam: PRESENT: decreased breath sounds, prolonged expiratory phas, rales, rhonchi, unlabored. ABSENT: retraction, stridor Cardiovascular exam: PRESENT: RRR, +S1, +S2 Pulses: PRESENT: normal radial pulses GI/Abdominal exam: PRESENT: diminished bowel sounds, distended Neurological exam: PRESENT: awake, oriented to person Psychiatric exam: PRESENT: normal mood Skin exam: PRESENT: dry, warm Results Laboratory Results: 10/03/17 02:34 10/03/17 02:34 10/02/17 10/02/17 10/02/17 14:09 14:09 16:00 WBC 16.8 H RBC 5.25 Hgb 14.3 Hct 44.0 MCV 84 MCH 27.3 MCHC 32.6 RDW 15.0 H Plt Count 350 Seg Neutrophils % 82.8 H Lymphocytes % 10.5 L Monocytes % 6.2 Eosinophils % 0.1 Basophils % 0.4 Absolute Neutrophils 14.0 H Absolute Lymphocytes 1.8 Absolute Monocytes 1.0 Absolute Eosinophils 0.0 Absolute Basophils 0.1 Carbonic Acid HCO3/H2CO3 Ratio ABG pH ABG pCO2 ABG pO2 ABG HCO3 ABG O2 Saturation ABG Base Excess FiO2 Sodium Potassium Chloride Carbon Dioxide Anion Gap BUN Creatinine Est GFR ( Amer) Est GFR (Non-Af Amer) Glucose Lactic Acid 3.2 H Calcium Phosphorus Magnesium 2.0 TSH Free T4 Urine Color Urine Appearance Urine pH Ur Specific [place] Urine Protein Urine Glucose (UA) Urine Ketones Urine Blood Urine Nitrite Ur Leukocyte Esterase Urine WBC (Auto) Urine RBC (Auto) 10/02/17 10/02/17 10/02/17 16:18 21:05 22:45 WBC RBC Hgb Hct MCV MCH MCHC RDW Plt Count Seg Neutrophils % Lymphocytes % Monocytes % Eosinophils % Basophils % Absolute Neutrophils Absolute Lymphocytes Absolute Monocytes Absolute Eosinophils Absolute Basophils Carbonic Acid 0.88 L HCO3/H2CO3 Ratio 25:1 ABG pH 7.50 H ABG pCO2 29.1 L ABG pO2 85.5 ABG HCO3 22.0 ABG O2 Saturation 97.3 ABG Base Excess 0 FiO2 30% Sodium Potassium Chloride Carbon Dioxide Anion Gap BUN Creatinine Est GFR ( Amer) Est GFR (Non-Af Amer) Glucose Lactic Acid 1.9 Calcium Phosphorus Magnesium TSH Free T4 Urine Color EZEKIEL Urine Appearance CLEAR Urine pH 5.0 Ur Specific [place] > 1.060 Urine Protein 100 H Urine Glucose (UA) NEGATIVE Urine Ketones 20 H Urine Blood NEGATIVE Urine Nitrite NEGATIVE Ur Leukocyte Esterase NEGATIVE Urine WBC (Auto) 2 Urine RBC (Auto) 1 10/03/17 10/03/17 10/03/17 02:34 02:34 02:34 WBC 13.0 H RBC 5.08 Hgb 14.1 Hct 42.4 MCV 83 MCH 27.6 MCHC 33.2 RDW 14.7 H Plt Count 298 Seg Neutrophils % 75.5 Lymphocytes % 15.2 Monocytes % 8.3 Eosinophils % 0.4 Basophils % 0.6 Absolute Neutrophils 9.8 H Absolute Lymphocytes 2.0 Absolute Monocytes 1.1 Absolute Eosinophils 0.1 Absolute Basophils 0.1 Carbonic Acid HCO3/H2CO3 Ratio ABG pH ABG pCO2 ABG pO2 ABG HCO3 ABG O2 Saturation ABG Base Excess FiO2 Sodium 140.3 Potassium 4.5 Chloride 103 Carbon Dioxide 26 Anion Gap 11 BUN 12 Creatinine 1.15 Est GFR ( Amer) > 60 Est GFR (Non-Af Amer) > 60 Glucose 109 Lactic Acid Calcium 9.0 Phosphorus 3.8 Magnesium 2.1 TSH 0.96 Free T4 0.60 L Urine Color Urine Appearance Urine pH Ur Specific [place] Urine Protein Urine Glucose (UA) Urine Ketones Urine Blood Urine Nitrite Ur Leukocyte Esterase Urine WBC (Auto) Urine RBC (Auto) 10/03/17 05:52 WBC RBC Hgb Hct MCV MCH MCHC RDW Plt Count Seg Neutrophils % Lymphocytes % Monocytes % Eosinophils % Basophils % Absolute Neutrophils Absolute Lymphocytes Absolute Monocytes Absolute Eosinophils Absolute Basophils Carbonic Acid 1.17 HCO3/H2CO3 Ratio 22:1 ABG pH 7.46 H ABG pCO2 38.8 ABG pO2 138.5 H ABG HCO3 26.7 H ABG O2 Saturation 98.9 H ABG Base Excess 2.7 FiO2 50% Sodium Potassium Chloride Carbon Dioxide Anion Gap BUN Creatinine Est GFR ( Amer) Est GFR (Non-Af Amer) Glucose Lactic Acid Calcium Phosphorus Magnesium TSH Free T4 Urine Color Urine Appearance Urine pH Ur Specific [place] Urine Protein Urine Glucose (UA) Urine Ketones Urine Blood Urine Nitrite Ur Leukocyte Esterase Urine WBC (Auto) Urine RBC (Auto) 10/02/17 10/02/17 10/02/17 16:00 16:00 20:31 Creatine Kinase 785 H 660 H CK-MB (CK-2) 12.90 H Troponin I 0.396 NT-Pro-B Natriuret Pep 10/02/17 10/03/17 10/03/17 20:31 02:34 02:34 Creatine Kinase 523 H CK-MB (CK-2) 12.10 H 10.00 H Troponin I 0.273 0.279 NT-Pro-B Natriuret Pep 10/03/17 02:34 Creatine Kinase CK-MB (CK-2) Troponin I NT-Pro-B Natriuret Pep 640 H Impressions: Chest/Abdomen CTA 10/02/17 10:53 IMPRESSION: Bilateral diffuse pulmonary infiltrates with nodularity in consolidation. Differential considerations include infectious etiologies, pulmonary edema or ARDS. Hypersensitivity pneumonitis considered less likely given absence of air trapping. Assessment & Plan - Diagnosis (1) Acute respiratory failure with hypoxia Is this a current diagnosis for this admission?: Yes Plan: abg better resp rate decreasing but tachypnia persist (2) Pneumonia Qualifiers: Pneumonia type: due to unspecified organism Laterality: bilateral Lung location: unspecified part of lung Qualified Code(s): J18.9 - Pneumonia, unspecified organism Is this a current diagnosis for this admission?: Yes Plan: Diffuse check mycoplasma and Legionella start chest physiotherapy N- acetylcysteine hopefully to be able to get a specimen without bronchoscopy but if necessary will initiate bronchoscopy (3) Sepsis Qualifiers: Sepsis type: sepsis due to unspecified organism Qualified Code(s): A41.9 - Sepsis, unspecified organism Is this a current diagnosis for this admission?: Yes Plan: Fever elevated white count tachycardia tachypnea (4) Sinus tachycardia Is this a current diagnosis for this admission?: Yes Plan: ST depressionc see cadiology - Time Total Critical Time (Minutes): 40
[2017-10-03] MEDS ORDERED: ENOXAPARIN SODIUM INJ 120 MG/0.8 ML DISP.SYRIN SUBCUT ONE (11:30)
--- NOTE | 2017-10-03 12:57 | PDOC CONSULTATION ---
Consultation Consult Date: 10/03/17 Attending physician:: AHNS PRABHAKAR Consult reason:: Positive troponin I History of Present Illness Admission Date/PCP: 10/02/17 13:26 Patient complains of: Shortness of breath History of Present Illness: ZULEIMA BAILEY is a 32 year old male, who presented to the emergency room after 2 days of progressive shortness of breath admits to fevers chills and weakness after the first day he was called and from work, he would not report to work however he continued to feel worse he did have a productive cough yellow phlegm and has had some streaks of blood in it no hannah hemoptysis he has had a negative PPD. PPD but is not aware of when has no history of chronic lung disease as a child or adolescent he admits to exposure to passive smoke as a child as well as an adult. He says he has never smoked. 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 He denies any recent travel has no pets he says occasional tightness in his chest since the illness since onset of illness sleeps on 2 pillows no PND occasional nocturnal cough for the last 2 days since onset of illness and intermittent episodes of anemia. He admits to snoring restless sleep nocturia 1-2 times per night sometimes unrestful sleep and daytime somnolence. This history obtained by the neurology physician was reviewed and confirmed. I was asked to see patient because of positive troponin I and abnormal EKG. Patient denied any history of chest pain or any prior heart problem. Patient has not seen a doctor in many years. Patient girlfriend at bedside. Patient does have history suggestive of sleep apnea. Past Medical History Cardiac Medical History: Denies: Atrial Fibrillation, Congestive Heart Failure, Coronary Artery Disease, DVT, Heart Murmur Pulmonary Medical History: Denies: Asthma, Intubation EENT Medical History: Denies: Cataracts, Ears, Throat Neurological Medical History: Denies: Hemorrhagic CVA, Ischemic CVA, Multiple Sclerosis, Seizures Endocrine Medical History: Reports: Obesity Denies: Diabetes Mellitus Type 2, Hyperthyroidism, Hypothyroidism Renal/ Medical History: Denies: Chronic Kidney Disease, End Stage Renal Disease, Nephrolithiasis Malignancy Medical History: Reports: None GI Medical History: Reports: Gastroesophageal Reflux Disease Denies: Cirrhosis, Crohn's Disease, Peptic Ulcer Disease, Ulcerative Colitis Musculoskeltal Medical History: Denies: Arthritis, Gout Skin Medical History: Denies: Eczema, Psoriasis Psychiatric Medical History: Denies: Dementia, Depression, Post Traumatic Stress Disorder Traumatic Medical History: Denies: Pneumothorax, Stab Wound, Traumatic Brain Injury Hematology: Denies: Anemia, Sickle Cell Disease Infectious Medical History: Denies: Hepatitis B, Hepatitis C Past Surgical History Past Surgical History: Reports: None Social History Information Source: Patient Lives with: Family Smoking Status: Never Smoker Frequency of Alcohol Use: Social Hx Recreational Drug Use: No Drugs: None Hx Prescription Drug Abuse: No - Advance Directive Resuscitation Status: Full Code Surrogate healthcare decision maker:: Patient's current girlfriend is the surrogate decision-maker Family History Family History: DM Parental Family History Reviewed: Yes Children Family History Reviewed: Yes Sibling(s) Family History Reviewed.: Yes Medication/Allergy Home Medications: No Home Medications 10/02/17 Allergies/Adverse Reactions: No Known Allergies Allergy (Unverified 10/02/17 10:33) Review of Systems Review of Systems: Please see history of present illness and past medical history as wall. Constitutional: Fever and chills reported. Head : No recent chronic headaches, recent head injury. Eyes: No recent eye pain, diplopia, redness, discharge, acute visual changes. Ears: No recent chronic ear pain, acute hearing loss, ear discharge. Oral cavity: No recent ulcerations, bleeding, oral cavity discomfort. Neck: No recent acute neck pain reported. Hematologic: No recent easy bruising or bleeding. Lymphatic: No recent lymph node enlargement reported. Cardiovascular system review: See history of present illness. Respiratory system review: No hemoptysis or blood clots in the lungs reported. Mild Shortness of breath on exertion. Recent sputum production. Gastrointestinal system review: Negative for any recent acute hematemesis, melena. Genitourinary system review: No recent acute or chronic hematuria, flank pain, UTI etc. reported. Skin system review: Negative for any recent abnormal bruising, no rash, no pruritus reported. Neurologic: No prior history of strokes, mini strokes, seizure disorder. Psychologic: No history of major psychosis or major depression reported. Musculoskeletal: Minor aches and pains reported. No acute joint swelling reported. Endocrine: No recent polyuria, polydipsia, recent heat or cold intolerance. Physical Exam Vital Signs: Temp Pulse Resp BP Pulse Ox 97.2 F 94 29 H 113/52 L 98 10/03/17 10:00 10/03/17 10:00 10/03/17 10:00 10/03/17 10:00 10/03/17 10:00 Intake & Output 10/02/17 10/03/17 10/04/17 06:59 06:59 06:59 Intake Total 120 Output Total 820 Balance -700 Weight 124.4 kg Exam: GENERAL: well-nourished and mild to moderate distress. Alert and oriented x3 HEAD: Atraumatic, normocephalic. EYES: Pupils equal round and reactive to light, extraocular movements intact, sclera anicteric, conjunctiva are normal. ENT: TMs normal, nares patent, oropharynx clear without exudates. Moist mucous membranes. No oral ulcerations or bleeding gums noted NECK: supple without lymphadenopathy. Trachea is central. No cervical or axillary lymphadenopathy noted. Carotids are 2+, JVD WNL LUNGS: Respiration seems nonlabored, no significant accessory muscle action noted. Bilateral fine crackles are noted. No wheezes rales or rhonchi noted. No significant dullness noted on percussion. CHEST: Palpation of the chest wall shows no significant chest wall tenderness. 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 ABDOMEN: Soft, no significant tenderness appreciated, normoactive bowel sounds. No guarding, no rebound. No rigidity noted . No masses appreciated. EXTREMITIES: Pedal pulses are 1-2+, no calf tenderness noted. No clubbing or cyanosis. Trace pedal edema noted NEUROLOGICAL: Focused neurological exam showed no significant neurologic deficit. Normal speech, no focal weakness appreciated. PSYCH: Normal mood, normal affect. Judgment and insight within normal limits. SKIN: No significant ecchymosis, skin is noted to be warm. MUSCULOSKELETAL EXAM: No significant acute joint swelling noted. Results Laboratory Results: 10/03/17 02:34 10/03/17 02:34 10/02/17 10/02/17 10/02/17 14:09 14:09 16:00 WBC 16.8 H RBC 5.25 Hgb 14.3 Hct 44.0 MCV 84 MCH 27.3 MCHC 32.6 RDW 15.0 H Plt Count 350 Seg Neutrophils % 82.8 H Lymphocytes % 10.5 L Monocytes % 6.2 Eosinophils % 0.1 Basophils % 0.4 Absolute Neutrophils 14.0 H Absolute Lymphocytes 1.8 Absolute Monocytes 1.0 Absolute Eosinophils 0.0 Absolute Basophils 0.1 Carbonic Acid HCO3/H2CO3 Ratio ABG pH ABG pCO2 ABG pO2 ABG HCO3 ABG O2 Saturation ABG Base Excess FiO2 Sodium Potassium Chloride Carbon Dioxide Anion Gap BUN Creatinine Est GFR ( Amer) Est GFR (Non-Af Amer) Glucose Lactic Acid 3.2 H Calcium Phosphorus Magnesium 2.0 TSH Free T4 Urine Color Urine Appearance Urine pH Ur Specific [place] Urine Protein Urine Glucose (UA) Urine Ketones Urine Blood Urine Nitrite Ur Leukocyte Esterase Urine WBC (Auto) Urine RBC (Auto) 10/02/17 10/02/17 10/02/17 16:18 21:05 22:45 WBC RBC Hgb Hct MCV MCH MCHC RDW Plt Count Seg Neutrophils % Lymphocytes % Monocytes % Eosinophils % Basophils % Absolute Neutrophils Absolute Lymphocytes Absolute Monocytes Absolute Eosinophils Absolute Basophils Carbonic Acid 0.88 L HCO3/H2CO3 Ratio 25:1 ABG pH 7.50 H ABG pCO2 29.1 L ABG pO2 85.5 ABG HCO3 22.0 ABG O2 Saturation 97.3 ABG Base Excess 0 FiO2 30% Sodium Potassium Chloride Carbon Dioxide Anion Gap BUN Creatinine Est GFR ( Amer) Est GFR (Non-Af Amer) Glucose Lactic Acid 1.9 Calcium Phosphorus Magnesium TSH Free T4 Urine Color EZEKIEL Urine Appearance CLEAR Urine pH 5.0 Ur Specific [place] > 1.060 Urine Protein 100 H Urine Glucose (UA) NEGATIVE Urine Ketones 20 H Urine Blood NEGATIVE Urine Nitrite NEGATIVE Ur Leukocyte Esterase NEGATIVE Urine WBC (Auto) 2 Urine RBC (Auto) 1 10/03/17 10/03/17 10/03/17 02:34 02:34 02:34 WBC 13.0 H RBC 5.08 Hgb 14.1 Hct 42.4 MCV 83 MCH 27.6 MCHC 33.2 RDW 14.7 H Plt Count 298 Seg Neutrophils % 75.5 Lymphocytes % 15.2 Monocytes % 8.3 Eosinophils % 0.4 Basophils % 0.6 Absolute Neutrophils 9.8 H Absolute Lymphocytes 2.0 Absolute Monocytes 1.1 Absolute Eosinophils 0.1 Absolute Basophils 0.1 Carbonic Acid HCO3/H2CO3 Ratio ABG pH ABG pCO2 ABG pO2 ABG HCO3 ABG O2 Saturation ABG Base Excess FiO2 Sodium 140.3 Potassium 4.5 Chloride 103 Carbon Dioxide 26 Anion Gap 11 BUN 12 Creatinine 1.15 Est GFR ( Amer) > 60 Est GFR (Non-Af Amer) > 60 Glucose 109 Lactic Acid Calcium 9.0 Phosphorus 3.8 Magnesium 2.1 TSH 0.96 Free T4 0.60 L Urine Color Urine Appearance Urine pH Ur Specific [place] Urine Protein Urine Glucose (UA) Urine Ketones Urine Blood Urine Nitrite Ur Leukocyte Esterase Urine WBC (Auto) Urine RBC (Auto) 10/03/17 05:52 WBC RBC Hgb Hct MCV MCH MCHC RDW Plt Count Seg Neutrophils % Lymphocytes % Monocytes % Eosinophils % Basophils % Absolute Neutrophils Absolute Lymphocytes Absolute Monocytes Absolute Eosinophils Absolute Basophils Carbonic Acid 1.17 HCO3/H2CO3 Ratio 22:1 ABG pH 7.46 H ABG pCO2 38.8 ABG pO2 138.5 H ABG HCO3 26.7 H ABG O2 Saturation 98.9 H ABG Base Excess 2.7 FiO2 50% Sodium Potassium Chloride Carbon Dioxide Anion Gap BUN Creatinine Est GFR ( Amer) Est GFR (Non-Af Amer) Glucose Lactic Acid Calcium Phosphorus Magnesium TSH Free T4 Urine Color Urine Appearance Urine pH Ur Specific [place] Urine Protein Urine Glucose (UA) Urine Ketones Urine Blood Urine Nitrite Ur Leukocyte Esterase Urine WBC (Auto) Urine RBC (Auto) 10/02/17 10/02/17 10/02/17 16:00 16:00 20:31 Creatine Kinase 785 H 660 H CK-MB (CK-2) 12.90 H Troponin I 0.396 NT-Pro-B Natriuret Pep 10/02/17 10/03/17 10/03/17 20:31 02:34 02:34 Creatine Kinase 523 H CK-MB (CK-2) 12.10 H 10.00 H Troponin I 0.273 0.279 NT-Pro-B Natriuret Pep 10/03/17 10/03/17 10/03/17 02:34 08:43 08:43 Creatine Kinase 413 H CK-MB (CK-2) 9.81 H Troponin I 0.189 NT-Pro-B Natriuret Pep 640 H EKG Comments: Sinus tachycardia with LVH and secondary ST-T wave changes Impressions: Chest/Abdomen CTA 10/02/17 10:53 IMPRESSION: Bilateral diffuse pulmonary infiltrates with nodularity in consolidation. Differential considerations include infectious etiologies, pulmonary edema or ARDS. Hypersensitivity pneumonitis considered less likely given absence of air trapping. Chest X-Ray 10/03/17 06:00 IMPRESSION: STABLE APPEARANCE OF THE CHEST WITH SEVERE DIFFUSE MULTIFOCAL AIRSPACE DISEASE. Assessment & Plan - Diagnosis (1) Elevated troponin I level Is this a current diagnosis for this admission?: Yes (2) Abnormal EKG Is this a current diagnosis for this admission?: Yes (3) Acute respiratory failure with hypoxia Is this a current diagnosis for this admission?: Yes (4) Bilateral pneumonia Qualifiers: Pneumonia type: due to unspecified organism Lung location: unspecified part of lung Qualified Code(s): J18.9 - Pneumonia, unspecified organism Is this a current diagnosis for this admission?: Yes (5) Sepsis Qualifiers: Sepsis type: sepsis due to unspecified organism Qualified Code(s): A41.9 - Sepsis, unspecified organism Is this a current diagnosis for this admission?: Yes (6) Sinus tachycardia Is this a current diagnosis for this admission?: Yes - Notes Notes: Elevated troponin I: Most likely related to sepsis. 2D echocardiogram shows normal LVEF without any definite wall motion abnormalities. LVEF was hyperdynamic. At this point recommend good treatment of sepsis which is ongoing. Abnormal EKG: Related to LVH. Patient is noted to have LVH on echocardiogram. Acute respiratory failure with hypoxemia: Related to bilateral pneumonia. Bilateral pneumonia: Noted on chest x-ray. Continue antibiotic therapy. Sepsis: Feel that patient has underlying sepsis or systemic inflammatory response related to it. Sinus tachycardia: Secondary to sepsis. However since patient has significant LVH, feel that he is at risk of going into atrial fibrillation with rapid ventricular response. Will therefore start patient on small dose of beta- luke. Gradually increase as tolerated. Have started patient on DVT prophylaxis dose of Lovenox. 1 full dose of Lovenox was given this morning as there is increased coagulation activity with sepsis. - Time Time Spent: 50 to 70 Minutes - CODE STATUS was discussed, patient remains full code. Surrogate decision-maker unchanged. Multiple medical problems were addressed. More than 50% of the time spent coordinating care, discussing management plans with involved caregivers. Management plans discussed with involved personnels. Medical decision making was of moderate to high complexity , patient's has multiple comorbidities.
[2017-10-03] MEDS ORDERED: METOPROLOL SUCCINATE 25 MG TAB.SR.24H PO ONE (13:30)
[2017-10-03] MEDS: LEVOFLOXACIN 750 MG/D5W RTU 750 MG/150 ML RTUPB IV SCH (14:15)
[2017-10-03] MEDS: LEVALBUTEROL HCL NEB 0.63 MG/3 ML AMPUL NEB PRN (20:27)
[2017-10-03] MEDS: METOPROLOL SUCCINATE 25 MG TAB.SR.24H PO SCH (21:54)
[2017-10-04] MEDS: LEVALBUTEROL HCL NEB 0.63 MG/3 ML AMPUL NEB PRN ×4 (02:18→21:04)
[2017-10-04 04:13] LABS: ABSOLUTE BASOPHILS # (AUTO) 0.1 10^3/uL (0.0-0.2); ABSOLUTE EOSINOPHILS # (AUTO) 0.4 10^3/uL (0.0-0.6); ABSOLUTE LYMPHOCYTES (AUTO) 2.3 10^3/uL (0.5-4.7); ABSOLUTE MONOCYTES (AUTO) 0.9 10^3/uL (0.1-1.4); ABSOLUTE NEUT (AUTO) 7.9 10^3/uL (1.7-8.2); BASOPHILS % (AUTO) 1.1 % (0-2); EOSINOPHILS % (AUTO) 3.8 % (0-6); HEMATOCRIT 41.7 % (37.9-51.0); HEMOGLOBIN 13.5 g/dL (13.5-17.0); LYMPHOCYTES % (AUTO) 19.7 % (13-45); MEAN CORPUSCULAR HEMOGLOBIN 27.4 pg (27.0-33.4); MEAN CORPUSCULAR HGB CONC 32.5 g/dL (32.0-36.0); MEAN CORPUSCULAR VOLUME 85 fl (80-97); PLATELET COUNT 331 10^3/uL (150-450); RED BLOOD COUNT 4.93 10^6/uL (4.35-5.55); RED CELL DISTRIBUTION WIDTH 15.1 % (11.5-14.0); SEGMENTED NEUTROPHILS % (AUTO) 67.4 % (42-78); TOTAL CELLS COUNTED % (AUTO) 100 %; WHITE BLOOD COUNT 11.7 10^3/uL (4.0-10.5)
[2017-10-04 04:46] LABS: ANION GAP 14 (5-19); BLOOD UREA NITROGEN 17 mg/dL (7-20); CALCIUM 9.2 mg/dL (8.4-10.2); CARBON DIOXIDE 24 mmol/L (22-30); CHLORIDE 107 mmol/L (98-107); GLUCOSE 96 mg/dL (75-110); PHOSPHORUS 4.3 mg/dL (2.5-4.5); POTASSIUM 4.7 mmol/L (3.6-5.0); SODIUM 144.7 mmol/L (137-145)
[2017-10-04 06:15] LABS: ARTERIAL BLOOD BASE EXCESS 0.3 mmol/L; ARTERIAL BLOOD H2CO3 1.15 mmol/L (1.05-1.35); ARTERIAL BLOOD HCO3 24.5 mmol/L (20-26); ARTERIAL BLOOD O2 SATURATION 94.9 % (94-98); ARTERIAL BLOOD PCO2 38.2 mmHg (35-45); ARTERIAL BLOOD PH 7.43 (7.35-7.45); ARTERIAL BLOOD PO2 71.8 mmHg (80-100); ARTERIAL BLOOD TOTAL CO2 25.7 mmol/L (23-27)
[2017-10-04 06:17] LABS: ARTERIAL BLOOD FIO2 2L
[2017-10-04] MEDS: FAMOTIDINE 20 MG TABLET PO SCH ×2 (08:16→21:14)
[2017-10-04] MEDS: LACTOBACILLUS ACIDOPHILUS 250 MG TAB PO SCH ×2 (08:17→18:03)
[2017-10-04] MEDS: METOPROLOL SUCCINATE 25 MG TAB.SR.24H PO SCH ×2 (08:17→21:13)
[2017-10-04] MEDS: ENOXAPARIN SODIUM INJ 40 MG/0.4 ML DISP.SYRIN SUBCUT SCH (08:20)
--- NOTE | 2017-10-04 08:40 | EKG REPORT ---
SEVERITY:- ABNORMAL ECG - SINUS RHYTHM ABNORMAL T, PROBABLE ISCHEMIA, ANT-LAT LEADS VS LVH ANTERIOR ST ELEVATION, PROBABLY DUE TO LVH : Confirmed by: Casper Espitia 04-Oct-2017 08:40:22
--- NOTE | 2017-10-04 08:50 | RADIOLOGY REPORT (SQ) ---
EXAM DESCRIPTION: CHEST SINGLE VIEW COMPLETED DATE/TIME: 10/04/2017 6:59 am REASON FOR STUDY: pna resp distress COMPARISON: Chest films 10/02/2017, 10/03/2017 CT angio chest 10/02/2017 EXAM PARAMETERS: NUMBER OF VIEWS: One view. TECHNIQUE: Single frontal radiographic view of the chest acquired. RADIATION DOSE: NA LIMITATIONS: None. FINDINGS: LUNGS AND PLEURA: Dense consolidation throughout both lungs, worrisome for pneumonia. Con current pulmonary edema or ARDS could not entirely be excluded. This pattern is similar compared to films and CT 10/02/2017. No gross pleural effusion or pneumothorax. MEDIASTINUM AND HILAR STRUCTURES: No masses. Contour normal. HEART AND VASCULAR STRUCTURES: Mild cardiomegaly, stable BONES: No acute findings. HARDWARE: None in the chest. OTHER: No other significant finding. IMPRESSION: Stable dense diffuse lung parenchymal consolidation. Stable mild cardiomegaly TECHNICAL DOCUMENTATION: JOB ID: [id number] [employer]- All Rights Reserved Reading location - IP/workstation name: [email or web address]
[2017-10-04] MEDS: ACETYLCYSTEINE 20% SOLN 800 MG/4 ML VIAL.NEB NEB SCH ×2 (09:11→21:04)
[2017-10-04] MEDS ORDERED: GUAIFENESIN 600 MG TABLET.SA PO SCH (10:00)
[2017-10-04] MEDS ORDERED: HYDRALAZINE HCL INJ/PF 20 MG/1 ML SDV IV PRN (11:00)
[2017-10-04] MEDS ORDERED: ONDANSETRON 4 MG TAB.RAPDIS PO PRN (11:00)
[2017-10-04] MEDS ORDERED: ONDANSETRON HCL INJ/PF 4 MG/2 ML SDV IV PRN (11:00)
[2017-10-04] MEDS: CEFTRIAXONE SODIUM 1,000 MG in DEXTROSE 5%-WATER 50 ML IV SCH (12:13)
--- NOTE | 2017-10-04 13:19 | PDOC PROGRESS REPORT ---
Subjective Progress Note for:: 10/04/17 Subjective:: 32 yr old male with no significant prior history who presented with acute hypoxic respiratory failure. is now coughing up phlegm. Awaiting culture results and sputum studies. Pulmonology input appreciated. Reason For Visit: PNEUMONIA, ACUTE HYPOXIC RESPIRATORY FAILURE Physical Exam Vital Signs: Temp Pulse Resp BP Pulse Ox 98.0 F 91 28 H 123/63 93 10/04/17 12:00 10/04/17 09:11 10/04/17 12:32 10/04/17 12:32 10/04/17 12:32 Intake & Output 10/03/17 10/04/17 10/05/17 06:59 06:59 06:59 Intake Total 120 200 300 Output Total 820 775 325 Balance -700 -575 -25 Weight 124.4 kg 125.1 kg General appearance: PRESENT: obese Head exam: PRESENT: normocephalic Eye exam: ABSENT: scleral icterus Ear exam: PRESENT: normal external ear exam Mouth exam: PRESENT: moist Neck exam: ABSENT: tracheal deviation Respiratory exam: PRESENT: symmetrical, other - coarse breath sounds bilateral Cardiovascular exam: PRESENT: RRR GI/Abdominal exam: PRESENT: normal bowel sounds, soft. ABSENT: tenderness Rectal exam: PRESENT: deferred Extremities exam: ABSENT: pedal edema Neurological exam: PRESENT: alert, awake, oriented to person, oriented to place , oriented to time Psychiatric exam: PRESENT: appropriate affect Skin exam: ABSENT: petechiae Results Laboratory Results: 10/04/17 03:56 10/04/17 03:56 10/04/17 10/04/17 10/04/17 03:56 03:56 03:56 WBC 11.7 H RBC 4.93 Hgb 13.5 Hct 41.7 MCV 85 MCH 27.4 MCHC 32.5 RDW 15.1 H Plt Count 331 Seg Neutrophils % 67.4 Lymphocytes % 19.7 Monocytes % 8.0 Eosinophils % 3.8 Basophils % 1.1 Absolute Neutrophils 7.9 Absolute Lymphocytes 2.3 Absolute Monocytes 0.9 Absolute Eosinophils 0.4 Absolute Basophils 0.1 Carbonic Acid HCO3/H2CO3 Ratio ABG pH ABG pCO2 ABG pO2 ABG HCO3 ABG O2 Saturation ABG Base Excess FiO2 Sodium 144.7 Potassium 4.7 Chloride 107 Carbon Dioxide 24 Anion Gap 14 BUN 17 Creatinine 1.13 Est GFR ( Amer) > 60 Est GFR (Non-Af Amer) > 60 Glucose 96 Lactic Acid 1.5 Calcium 9.2 Phosphorus 4.3 Magnesium 2.4 H 10/04/17 05:48 WBC RBC Hgb Hct MCV MCH MCHC RDW Plt Count Seg Neutrophils % Lymphocytes % Monocytes % Eosinophils % Basophils % Absolute Neutrophils Absolute Lymphocytes Absolute Monocytes Absolute Eosinophils Absolute Basophils Carbonic Acid 1.15 HCO3/H2CO3 Ratio 21:1 ABG pH 7.43 ABG pCO2 38.2 ABG pO2 71.8 L ABG HCO3 24.5 ABG O2 Saturation 94.9 ABG Base Excess 0.3 FiO2 2L Sodium Potassium Chloride Carbon Dioxide Anion Gap BUN Creatinine Est GFR ( Amer) Est GFR (Non-Af Amer) Glucose Lactic Acid Calcium Phosphorus Magnesium 10/02/17 10/02/17 10/02/17 16:00 16:00 20:31 Creatine Kinase 785 H 660 H CK-MB (CK-2) 12.90 H Troponin I 0.396 NT-Pro-B Natriuret Pep 10/02/17 10/03/17 10/03/17 20:31 02:34 02:34 Creatine Kinase 523 H CK-MB (CK-2) 12.10 H 10.00 H Troponin I 0.273 0.279 NT-Pro-B Natriuret Pep 10/03/17 10/03/17 10/03/17 02:34 08:43 08:43 Creatine Kinase 413 H CK-MB (CK-2) 9.81 H Troponin I 0.189 NT-Pro-B Natriuret Pep 640 H Impressions: Chest/Abdomen CTA 10/02/17 10:53 IMPRESSION: Bilateral diffuse pulmonary infiltrates with nodularity in consolidation. Differential considerations include infectious etiologies, pulmonary edema or ARDS. Hypersensitivity pneumonitis considered less likely given absence of air trapping. Chest X-Ray 10/04/17 06:00 IMPRESSION: Stable dense diffuse lung parenchymal consolidation. Stable mild cardiomegaly Assessment & Plan - Diagnosis (1) Acute respiratory failure with hypoxia Is this a current diagnosis for this admission?: Yes Plan: Continue antibiotics, BiPAP, awaiting cultures. (2) Bilateral pneumonia Qualifiers: Pneumonia type: due to unspecified organism Lung location: unspecified part of lung Qualified Code(s): J18.9 - Pneumonia, unspecified organism Is this a current diagnosis for this admission?: Yes Plan: Differential includes hypersensitivity pneumonitis. Day 3 Rocephin and Levaquin. Check urine Legionella antigen, [place], RF, pro-calcitonin. Supplemental oxygen, sputum culture, blood culture, pulmonology consult appreciated. PPD placed. Echo showed LVH and diastolic dysfunction. (3) Sinus tachycardia Is this a current diagnosis for this admission?: Yes Plan: Due to pneumonia. - Time Time Spent with patient: 25-34 minutes
[2017-10-04 13:37] LABS: ANTICHROMATIN AB <0.2 AI (0.0-0.9); CENTROMERE B AB <0.2 AI (0.0-0.9); JO-1 ANTIBODY (ANACOMP) <0.2 AI (0.0-0.9); RNP AB 0.4 AI (0.0-0.9); SCLERODERMA-70 ANTIBODIES <0.2 AI (0.0-0.9); SJOGREN'S ANTI-SS-B AB <0.2 AI (0.0-0.9); SJOGREN'S SS-A ANTIBODY <0.2 AI (0.0-0.9); SMITH AB ANA <0.2 AI (0.0-0.9)
--- NOTE | 2017-10-04 13:46 | PDOC PROGRESS REPORT ---
Subjective Progress Note for:: 10/04/17 Subjective:: Feeling a little bit better still requiring noninvasive positive pressure ventilation Reason For Visit: PNEUMONIA, ACUTE HYPOXIC RESPIRATORY FAILURE Physical Exam Vital Signs: Temp Pulse Resp BP Pulse Ox 98.2 F 78 35 H 140/70 H 96 10/04/17 06:00 10/04/17 07:46 10/04/17 04:32 10/04/17 04:32 10/04/17 04:32 Intake & Output 10/03/17 10/04/17 10/05/17 06:59 06:59 06:59 Intake Total 120 200 Output Total 820 775 Balance -700 -575 Weight 124.4 kg 125.1 kg General appearance: PRESENT: no acute distress, cooperative, disheveled, morbidly obese Head exam: PRESENT: atraumatic, normocephalic Eye exam: PRESENT: conjunctiva pale, EOMI. ABSENT: nystagmus, periorbital swelling, scleral icterus Mouth exam: PRESENT: dry mucosa, neck supple, tongue midline Neck exam: ABSENT: carotid bruit, JVD, lymphadenopathy, thyromegaly, tracheal deviation, tracheostomy Respiratory exam: PRESENT: decreased breath sounds, prolonged expiratory phas, rales, rhonchi, unlabored. ABSENT: retraction, stridor Cardiovascular exam: PRESENT: RRR, +S1, +S2 Pulses: PRESENT: normal radial pulses GI/Abdominal exam: PRESENT: normal bowel sounds, tenderness Extremities exam: PRESENT: full ROM. ABSENT: calf tenderness, clubbing, joint swelling Musculoskeletal exam: PRESENT: full ROM. ABSENT: deformity, dislocation Neurological exam: PRESENT: alert, awake Psychiatric exam: PRESENT: flat affect Skin exam: PRESENT: dry, warm Results Laboratory Results: 10/04/17 03:56 10/04/17 03:56 10/04/17 10/04/17 10/04/17 03:56 03:56 03:56 WBC 11.7 H RBC 4.93 Hgb 13.5 Hct 41.7 MCV 85 MCH 27.4 MCHC 32.5 RDW 15.1 H Plt Count 331 Seg Neutrophils % 67.4 Lymphocytes % 19.7 Monocytes % 8.0 Eosinophils % 3.8 Basophils % 1.1 Absolute Neutrophils 7.9 Absolute Lymphocytes 2.3 Absolute Monocytes 0.9 Absolute Eosinophils 0.4 Absolute Basophils 0.1 Carbonic Acid HCO3/H2CO3 Ratio ABG pH ABG pCO2 ABG pO2 ABG HCO3 ABG O2 Saturation ABG Base Excess FiO2 Sodium 144.7 Potassium 4.7 Chloride 107 Carbon Dioxide 24 Anion Gap 14 BUN 17 Creatinine 1.13 Est GFR ( Amer) > 60 Est GFR (Non-Af Amer) > 60 Glucose 96 Lactic Acid 1.5 Calcium 9.2 Phosphorus 4.3 Magnesium 2.4 H 10/04/17 05:48 WBC RBC Hgb Hct MCV MCH MCHC RDW Plt Count Seg Neutrophils % Lymphocytes % Monocytes % Eosinophils % Basophils % Absolute Neutrophils Absolute Lymphocytes Absolute Monocytes Absolute Eosinophils Absolute Basophils Carbonic Acid 1.15 HCO3/H2CO3 Ratio 21:1 ABG pH 7.43 ABG pCO2 38.2 ABG pO2 71.8 L ABG HCO3 24.5 ABG O2 Saturation 94.9 ABG Base Excess 0.3 FiO2 2L Sodium Potassium Chloride Carbon Dioxide Anion Gap BUN Creatinine Est GFR ( Amer) Est GFR (Non-Af Amer) Glucose Lactic Acid Calcium Phosphorus Magnesium 10/02/17 10/02/17 10/02/17 16:00 16:00 20:31 Creatine Kinase 785 H 660 H CK-MB (CK-2) 12.90 H Troponin I 0.396 NT-Pro-B Natriuret Pep 10/02/17 10/03/17 10/03/17 20:31 02:34 02:34 Creatine Kinase 523 H CK-MB (CK-2) 12.10 H 10.00 H Troponin I 0.273 0.279 NT-Pro-B Natriuret Pep 10/03/17 10/03/17 10/03/17 02:34 08:43 08:43 Creatine Kinase 413 H CK-MB (CK-2) 9.81 H Troponin I 0.189 NT-Pro-B Natriuret Pep 640 H Impressions: Chest/Abdomen CTA 10/02/17 10:53 IMPRESSION: Bilateral diffuse pulmonary infiltrates with nodularity in consolidation. Differential considerations include infectious etiologies, pulmonary edema or ARDS. Hypersensitivity pneumonitis considered less likely given absence of air trapping. Assessment & Plan - Diagnosis (1) Acute respiratory failure with hypoxia Is this a current diagnosis for this admission?: Yes Plan: improving (2) Pneumonia Qualifiers: Pneumonia type: due to unspecified organism Laterality: bilateral Lung location: unspecified part of lung Qualified Code(s): J18.9 - Pneumonia, unspecified organism Is this a current diagnosis for this admission?: Yes Plan: Diffuse check mycoplasma and Legionella start chest physiotherapy N- acetylcysteine hopefully to be able to get a specimen without bronchoscopy but if necessary will initiate bronchoscopy (3) Sepsis Qualifiers: Sepsis type: sepsis due to unspecified organism Qualified Code(s): A41.9 - Sepsis, unspecified organism Is this a current diagnosis for this admission?: Yes Plan: Fever elevated white count tachycardia tachypnea (4) Sinus tachycardia Is this a current diagnosis for this admission?: Yes Plan: ST depressionc see cadiology - Time Total Critical Time (Minutes): 45
[2017-10-04 13:59] LABS: DNA DOUBLE STRAND ANTIBODY ANA <1 IU/mL (0-9)
[2017-10-04] MEDS ORDERED: BISACODYL 5 MG TABEC PO ONE (14:00)
[2017-10-04] MEDS ORDERED: DOCUSATE SODIUM 100 MG CAPSULE PO ONE (14:00)
[2017-10-04] MEDS: LEVOFLOXACIN 750 MG/D5W RTU 750 MG/150 ML RTUPB IV SCH (16:04)
[2017-10-04] MEDS: DOCUSATE SODIUM 100 MG CAPSULE PO SCH (18:03)
--- NOTE | 2017-10-04 19:49 | PROGRESS NOTE E ---
Progress Note NAME: ZULEIMA BAILEY : 1985 AGE: 32Y DATE: 10/04/2017 ROOM: 607 SUBJECTIVE: The patient denies any chest pain or discomfort. He denies any shortness of breath, although he does have a cough. He states that occasionally with the cough, he has wheezing. Earlier, the patient, after a breathing treatment, had a generalized chest tightness, not clinically suggestive of angina. He has no PND or orthopnea. The patient has symptoms suggestive of sleep apnea and the patient is morbidly obese. The patient has not had a sleep study but the patient would benefit from one as an outpatient. He denies any leg edema. There is no PND or orthopnea. There are no palpitations. There is no arrhythmia seen on the monitor. OBJECTIVE: GENERAL: On examination, the patient is morbidly obese but well groomed. VITAL SIGNS: He is afebrile with a temperature of 98 degrees Fahrenheit, his pulse is 72 beats per minute, blood pressure 123/63, respirations are 20 per minute, O2 saturations are 93% on FiO2 of 50%. O2 flow rate is 2 L/min by nasal cannula. HEENT: Head is atraumatic, normocephalic. Eyes: Pupils are equal, round, regular, reactive to light and accommodation. Extraocular movements are normal. There is no conjunctival pallor. There is no scleral icterus. ENT is negative. NECK: Supple. There is no JVD. Carotids are equal. There is no bruit. There is no goiter. There is no lymphadenopathy. Trachea central. LUNGS: There is no chest wall tenderness. There is diminished air entry and bilateral dry crackles on both bases. There is no rhonchi or wheezing. HEART: S1 and S2 are heard. There is no S3 gallop. There is no S4 gallop. There is a systolic murmur, left sternal border on the apex. There is no rub. ABDOMEN: Soft, nontender. There is no hepatosplenomegaly. Abdomen is obese. The bowel sounds are normal. There are no tender areas or masses. EXTREMITIES: Femorals are diminished. Femorals are deep. There are no femoral bruits. Leg pulses are mildly reduced. There is no DVT or cellulitis. There is no pedal edema. There is no calf tenderness. CENTRAL NERVOUS SYSTEM: The patient is conscious, awake, alert, oriented x3. IMAGING STUDIES: The patient's chest x-ray shows bilateral pneumonia. DIAGNOSTIC STUDIES: The patient's EKG shows sinus rhythm, LVH with strain pattern. Cannot exclude lateral wall HD. There is anterior ST elevation secondary to LVH. MICROBIOLOGY DATA: The patient's chlamydia, pneumonia, legionella culture, and mycoplasma culture are all pending. INTAKE AND OUTPUT: The patient's 24 hour intake has been 200 mL. Output is 775 mL. This may not be accurate. LABORATORY DATA: The patient's white count is 11,700; hemoglobin is 13.5; hematocrit is 41.7; and his platelet count is 331,000. The patient's sodium is 144.7, potassium 4.7, chloride is 107, CO2 is 24. The patient's BUN is 17, creatinine is 1.13, GFR is greater than 60, glucose is 96. The patient's lactic acid is normal at 1.5. His calcium is 9.2. His magnesium is 2.4 which is slightly up. His phosphorus 4.3. The patient's troponin I yesterday had come down to 0.19. IMPRESSION: 1. BILATERAL PNEUMONIA. PATIENT ON ANTIBIOTICS. CONTINUE ANTIBIOTICS. CONTINUE NASAL OXYGEN AND RESPIRATORY TREATMENTS. 2. ELEVATED TROPONIN I, MOST LIKELY SECONDARY TO SEPSIS/PNEUMONIA. NO DEFINITE EVIDENCE OF NON-ST ELEVATION MYOCARDIAL INFARCTION. NOTE THAT THE TROPONIN IS TRENDING DOWN. WE WILL RECHECK THE PATIENT'S TROPONIN I TOMORROW. 3. ABNORMAL EKG. :LVH WITH STRAIN PATTERN BUT PATIENT WOULD BE RECOMMENDED TO HAVE A LEXISCAN CARDIOLITE STRESS TEST ONCE THE PATIENT RECOVERS FROM HIS PNEUMONIA FULLY. 4. SEPSIS. PATIENT BEING TREATED APPROPRIATELY. 5. SINUS TACHYCARDIA, RESOLVED WITH TREATMENT OF THE SEPSIS. HENCE THIS IS THE CAUSE OF THE PATIENT'S TACHYCARDIA WHICH IS NOW CONTROLLED AND IS IN SINUS RHYTHM. 6.MORBID OBESITY. RECOMMENDATION: 1. Continue respiratory treatments. 2. Continue antibiotics. 3. Continue Lovenox at DVT prophylaxis doses. 4. Continue metoprolol, small dose and increase as tolerated. CODE STATUS: The patient is a FULL CODE. His girlfriend is the surrogate healthcare decision maker. The patient's medications have been reviewed and the chart has also been reviewed by me since I am seeing him today for the first time in followup. The patient's echo findings have been noted. His systolic function is normal but the patient does have LVH. So far, there is no evidence of any atrial or ventricular arrhythmias. The patient's medical decision making is of moderate complexity due to the patient's abnormal EKG and the patient's elevated troponin I, being investigated into whether the patient does have significant coronary artery disease or not. The patient also has symptoms of obstructive sleep apnea and would benefit from a sleep study as an outpatient. This can be done once the patient is discharged after his pneumonia is cleared. TIME SPENT: Thirty-five minutes spent on the patient with more than 50% of the time spent on direct patient care. We will follow with you. DICTATING PHYSICIAN: YANET WADSWORTH M.D. [id number] AUREA#: [id number] ID: [id number] JOB#: [id number] ACCT: [id number] cc: > MTDD
[2017-10-04] MEDS: GUAIFENESIN 600 MG TABLET.SA PO SCH (21:13)
[2017-10-05 04:09] LABS: ABSOLUTE BASOPHILS # (AUTO) 0.1 10^3/uL (0.0-0.2); ABSOLUTE EOSINOPHILS # (AUTO) 0.4 10^3/uL (0.0-0.6); ABSOLUTE LYMPHOCYTES (AUTO) 2.3 10^3/uL (0.5-4.7); ABSOLUTE NEUT (AUTO) 8.6 10^3/uL (1.7-8.2); BASOPHILS % (AUTO) 0.8 % (0-2); EOSINOPHILS % (AUTO) 3.6 % (0-6); HEMATOCRIT 40.8 % (37.9-51.0); HEMOGLOBIN 13.3 g/dL (13.5-17.0); LYMPHOCYTES % (AUTO) 18.4 % (13-45); MEAN CORPUSCULAR HEMOGLOBIN 27.5 pg (27.0-33.4); MEAN CORPUSCULAR HGB CONC 32.6 g/dL (32.0-36.0); MEAN CORPUSCULAR VOLUME 85 fl (80-97); PLATELET COUNT 327 10^3/uL (150-450); RED BLOOD COUNT 4.83 10^6/uL (4.35-5.55); SEGMENTED NEUTROPHILS % (AUTO) 69.2 % (42-78); TOTAL CELLS COUNTED % (AUTO) 100 %; WHITE BLOOD COUNT 12.4 10^3/uL (4.0-10.5)
[2017-10-05 04:41] LABS: ANION GAP 13 (5-19); BLOOD UREA NITROGEN 18 mg/dL (7-20); CALCIUM 8.5 mg/dL (8.4-10.2); CARBON DIOXIDE 25 mmol/L (22-30); CHLORIDE 107 mmol/L (98-107); GLUCOSE 112 mg/dL (75-110); PHOSPHORUS 4.7 mg/dL (2.5-4.5); SODIUM 144.7 mmol/L (137-145)
[2017-10-05 04:56] LABS: TROPONIN I 0.124 ng/mL
[2017-10-05 05:32] LABS: ARTERIAL BLOOD BASE EXCESS -0.8 mmol/L; ARTERIAL BLOOD H2CO3 1.08 mmol/L (1.05-1.35); ARTERIAL BLOOD HCO3 23.1 mmol/L (20-26); ARTERIAL BLOOD O2 SATURATION 98.6 % (94-98); ARTERIAL BLOOD PCO2 35.8 mmHg (35-45); ARTERIAL BLOOD PH 7.43 (7.35-7.45); ARTERIAL BLOOD PO2 124.9 mmHg (80-100); ARTERIAL BLOOD TOTAL CO2 24.2 mmol/L (23-27)
[2017-10-05 05:37] LABS: ARTERIAL BLOOD FIO2 40%
--- NOTE | 2017-10-05 06:35 | RADIOLOGY REPORT (SQ) ---
EXAM DESCRIPTION: Single view of the chest CLINICAL HISTORY: pna COMPARISON: 10/04/2017 FINDINGS: Single frontal view of the chest. Cardiomegaly. Diffuse patchy bilateral airspace opacities with slight improved aeration. No pneumothorax or pleural effusion. No displaced rib fractures identified. Upper abdominal soft tissues are unremarkable. IMPRESSION: 1. Diffuse patchy bilateral airspace opacities with slight improved aeration.
[2017-10-05 07:06] LABS: MYCOPLASMA PNEUMONIAE IGG AB 328 U/mL (0-99); MYCOPLASMA PNEUMONIAE IGM AB <770 U/mL (0-769)
--- NOTE | 2017-10-05 08:33 | PDOC PROGRESS REPORT ---
Subjective Progress Note for:: 10/05/17 Subjective:: Patient is complaining of still of intermittent chest tightness No fever no chills Persistent cough nonproductive No pleuritic chest pain Reason For Visit: PNEUMONIA, ACUTE HYPOXIC RESPIRATORY FAILURE Physical Exam Vital Signs: Temp Pulse Resp BP Pulse Ox 98.4 F 92 28 H 143/60 H 95 10/05/17 07:35 10/05/17 07:35 10/05/17 07:35 10/05/17 07:35 10/05/17 07:35 Intake & Output 10/04/17 10/05/17 10/06/17 00:59 00:59 00:59 Intake Total 200 1830 Output Total 675 1400 400 Balance -475 430 -400 Weight 124.4 kg 125.1 kg 124.9 kg General appearance: PRESENT: no acute distress, cooperative, well-developed, well-nourished Head exam: PRESENT: atraumatic, normocephalic Eye exam: PRESENT: conjunctiva pink, EOMI, PERRLA. ABSENT: scleral icterus Neck exam: ABSENT: carotid bruit, JVD, lymphadenopathy, thyromegaly Respiratory exam: PRESENT: clear to auscultation hansel. ABSENT: rales, rhonchi, wheezes Cardiovascular exam: PRESENT: tachycardia Pulses: PRESENT: normal dorsalis pedis pul GI/Abdominal exam: PRESENT: normal bowel sounds, soft. ABSENT: distended, guarding, mass, organolmegaly, rebound, tenderness Extremities exam: PRESENT: full ROM. ABSENT: calf tenderness, clubbing, pedal edema Musculoskeletal exam: PRESENT: full ROM Neurological exam: PRESENT: alert, awake, oriented to person, oriented to place , oriented to time, oriented to situation, CN II-XII grossly intact. ABSENT: motor sensory deficit Skin exam: PRESENT: dry, intact, warm. ABSENT: cyanosis, rash Results Laboratory Results: 10/05/17 03:58 10/05/17 03:58 10/05/17 10/05/17 10/05/17 03:58 03:58 05:15 WBC 12.4 H RBC 4.83 Hgb 13.3 L Hct 40.8 MCV 85 MCH 27.5 MCHC 32.6 RDW 15.0 H Plt Count 327 Seg Neutrophils % 69.2 Lymphocytes % 18.4 Monocytes % 8.0 Eosinophils % 3.6 Basophils % 0.8 Absolute Neutrophils 8.6 H Absolute Lymphocytes 2.3 Absolute Monocytes 1.0 Absolute Eosinophils 0.4 Absolute Basophils 0.1 Carbonic Acid 1.08 HCO3/H2CO3 Ratio 21:1 ABG pH 7.43 ABG pCO2 35.8 ABG pO2 124.9 H ABG HCO3 23.1 ABG O2 Saturation 98.6 H ABG Base Excess -0.8 FiO2 40% Sodium 144.7 Potassium 4.0 Chloride 107 Carbon Dioxide 25 Anion Gap 13 BUN 18 Creatinine 1.13 Est GFR ( Amer) > 60 Est GFR (Non-Af Amer) > 60 Glucose 112 H Calcium 8.5 Phosphorus 4.7 H Magnesium 2.2 10/02/17 10/02/17 10/02/17 16:00 16:00 20:31 Creatine Kinase 785 H 660 H CK-MB (CK-2) 12.90 H Troponin I 0.396 NT-Pro-B Natriuret Pep 10/02/17 10/03/17 10/03/17 20:31 02:34 02:34 Creatine Kinase 523 H CK-MB (CK-2) 12.10 H 10.00 H Troponin I 0.273 0.279 NT-Pro-B Natriuret Pep 10/03/17 10/03/17 10/03/17 02:34 08:43 08:43 Creatine Kinase 413 H CK-MB (CK-2) 9.81 H Troponin I 0.189 NT-Pro-B Natriuret Pep 640 H 10/05/17 03:58 Creatine Kinase CK-MB (CK-2) Troponin I 0.124 NT-Pro-B Natriuret Pep 182 H EKG Comments: SINUS RHYTHM [SPR] . SHORT [place] INTERVAL, ACCELERATED AV CONDUCTION [T6LA] . ABNORMAL T, PROBABLE ISCHEMIA, LATERAL LEADS [BSTEAL] . BORDERLINE ST ELEVATION, ANTEROLATERAL LEADS [id number] ZULEIMA BAILEY 05-Oct-2017 05:30:01 : 1985 32 Years Male Race: White Dept: Inpatients Room: 607 Oper: ST HR 83 Impressions: Chest/Abdomen CTA 10/02/17 10:53 IMPRESSION: Bilateral diffuse pulmonary infiltrates with nodularity in consolidation. Differential considerations include infectious etiologies, pulmonary edema or ARDS. Hypersensitivity pneumonitis considered less likely given absence of air trapping. Chest X-Ray 10/05/17 06:00 IMPRESSION: 1. Diffuse patchy bilateral airspace opacities with slight improved aeration. Assessment & Plan - Diagnosis (1) Abnormal EKG Is this a current diagnosis for this admission?: Yes Plan: Sinus tachycardia; peaked T's suggestive of ischemia Case discussed with cardiology We will increase metoprolol, add Ecotrin, Lipitor and Nitropaste Continue Lovenox prophylaxis (2) Elevated troponin I level Is this a current diagnosis for this admission?: Yes Plan: Likely acute non-STEMI type II secondary to hypoxemia and pneumonia An echocardiogram was performed; it did not show wall motion abnormalities LVEF was normal with moderate concentric ventricular hypertrophy and grade 2/6 diastolic dysfunction (3) Pneumonia Qualifiers: Pneumonia type: due to unspecified organism Laterality: bilateral Lung location: unspecified part of lung Qualified Code(s): J18.9 - Pneumonia, unspecified organism Is this a current diagnosis for this admission?: Yes Plan: Community-acquired pneumonia No sputum is available Treat with ceftriaxone and Levaquin (4) Sepsis Qualifiers: Sepsis type: sepsis due to unspecified organism Qualified Code(s): A41.9 - Sepsis, unspecified organism Is this a current diagnosis for this admission?: Yes (5) Sinus tachycardia Is this a current diagnosis for this admission?: Yes (6) Acute respiratory failure with hypoxia Is this a current diagnosis for this admission?: Yes Plan: Is improving Patient is off BiPAP during the day Continue O2 supplementation (7) TRISH (obstructive sleep apnea) Is this a current diagnosis for this admission?: Yes Plan: Patient will need sleep study after discharge when clinically stable - Time Time Spent with patient: 25-34 minutes - Plan Summary Plan Summary: Patient is clinically stable May be transferred to [facility] with telemetry
[2017-10-05] MEDS: ALBUTEROL SULFATE 0.042% NEB (1.25 MG/3 ML) AMPUL NEB PRN ×2 (08:48→19:49)
[2017-10-05] MEDS: ACETYLCYSTEINE 20% SOLN 800 MG/4 ML VIAL.NEB NEB SCH ×2 (08:48→19:48)
--- NOTE | 2017-10-05 08:56 | EKG REPORT ---
SEVERITY:- ABNORMAL ECG - SINUS RHYTHM SHORT MI INTERVAL, ACCELERATED AV CONDUCTION ABNORMAL T, PROBABLE ISCHEMIA, LATERAL LEADS BORDERLINE ST ELEVATION, ANTEROLATERAL LEADS : Confirmed by: Casper Espitia 05-Oct-2017 08:55:36
[2017-10-05] MEDS: GUAIFENESIN 600 MG TABLET.SA PO SCH ×2 (10:31→21:24)
[2017-10-05] MEDS: LACTOBACILLUS ACIDOPHILUS 250 MG TAB PO SCH ×2 (10:31→17:31)
[2017-10-05] MEDS: FAMOTIDINE 20 MG TABLET PO SCH ×2 (10:32→21:25)
[2017-10-05] MEDS: METOPROLOL SUCCINATE 25 MG TAB.SR.24H PO SCH ×2 (10:32→21:24)
[2017-10-05] MEDS: ASPIRIN 325 MG TABLET, ENT COATED PO SCH (10:35)
[2017-10-05] MEDS: DOCUSATE SODIUM 100 MG CAPSULE PO SCH ×2 (10:35→17:34)
[2017-10-05] MEDS: ENOXAPARIN SODIUM INJ 40 MG/0.4 ML DISP.SYRIN SUBCUT SCH (10:35)
[2017-10-05] MEDS: NITROGLYCERIN 2% OINTMENT 1 GM PACKET TP SCH ×3 (10:41→21:22)
--- NOTE | 2017-10-05 10:58 | PDOC PROGRESS REPORT ---
Subjective Progress Note for:: 10/05/17 Subjective:: Feeling better still requiring noninvasive positive pressure ventilation Reason For Visit: PNEUMONIA, ACUTE HYPOXIC RESPIRATORY FAILURE Physical Exam Vital Signs: Temp Pulse Resp BP Pulse Ox 98.4 F 92 28 H 143/60 H 95 10/05/17 07:35 10/05/17 07:35 10/05/17 07:35 10/05/17 07:35 10/05/17 07:35 Intake & Output 10/04/17 10/05/17 10/06/17 06:59 06:59 06:59 Intake Total 200 1830 Output Total 775 1400 Balance -575 430 Weight 125.1 kg 124.9 kg General appearance: PRESENT: no acute distress, cooperative, disheveled, morbidly obese Head exam: PRESENT: atraumatic, normocephalic Eye exam: PRESENT: conjunctiva pale, EOMI. ABSENT: nystagmus, periorbital swelling, scleral icterus Mouth exam: PRESENT: dry mucosa, neck supple, tongue midline Neck exam: ABSENT: carotid bruit, JVD, lymphadenopathy, thyromegaly, tracheal deviation, tracheostomy Respiratory exam: PRESENT: decreased breath sounds, prolonged expiratory phas, rales, rhonchi, unlabored. ABSENT: retraction, stridor Cardiovascular exam: PRESENT: RRR, +S1, +S2. ABSENT: tachycardia Pulses: PRESENT: normal radial pulses GI/Abdominal exam: PRESENT: diminished bowel sounds, soft Extremities exam: ABSENT: calf tenderness, clubbing, joint swelling Musculoskeletal exam: ABSENT: deformity, dislocation Neurological exam: PRESENT: alert, awake Psychiatric exam: PRESENT: normal mood Skin exam: PRESENT: dry, warm Results Laboratory Results: 10/05/17 03:58 10/05/17 03:58 10/05/17 10/05/17 10/05/17 03:58 03:58 05:15 WBC 12.4 H RBC 4.83 Hgb 13.3 L Hct 40.8 MCV 85 MCH 27.5 MCHC 32.6 RDW 15.0 H Plt Count 327 Seg Neutrophils % 69.2 Lymphocytes % 18.4 Monocytes % 8.0 Eosinophils % 3.6 Basophils % 0.8 Absolute Neutrophils 8.6 H Absolute Lymphocytes 2.3 Absolute Monocytes 1.0 Absolute Eosinophils 0.4 Absolute Basophils 0.1 Carbonic Acid 1.08 HCO3/H2CO3 Ratio 21:1 ABG pH 7.43 ABG pCO2 35.8 ABG pO2 124.9 H ABG HCO3 23.1 ABG O2 Saturation 98.6 H ABG Base Excess -0.8 FiO2 40% Sodium 144.7 Potassium 4.0 Chloride 107 Carbon Dioxide 25 Anion Gap 13 BUN 18 Creatinine 1.13 Est GFR ( Amer) > 60 Est GFR (Non-Af Amer) > 60 Glucose 112 H Calcium 8.5 Phosphorus 4.7 H Magnesium 2.2 10/02/17 10/02/17 10/02/17 16:00 16:00 20:31 Creatine Kinase 785 H 660 H CK-MB (CK-2) 12.90 H Troponin I 0.396 NT-Pro-B Natriuret Pep 10/02/17 10/03/17 10/03/17 20:31 02:34 02:34 Creatine Kinase 523 H CK-MB (CK-2) 12.10 H 10.00 H Troponin I 0.273 0.279 NT-Pro-B Natriuret Pep 10/03/17 10/03/17 10/03/17 02:34 08:43 08:43 Creatine Kinase 413 H CK-MB (CK-2) 9.81 H Troponin I 0.189 NT-Pro-B Natriuret Pep 640 H 10/05/17 03:58 Creatine Kinase CK-MB (CK-2) Troponin I 0.124 NT-Pro-B Natriuret Pep 182 H Impressions: Chest/Abdomen CTA 10/02/17 10:53 IMPRESSION: Bilateral diffuse pulmonary infiltrates with nodularity in consolidation. Differential considerations include infectious etiologies, pulmonary edema or ARDS. Hypersensitivity pneumonitis considered less likely given absence of air trapping. Chest X-Ray 10/05/17 06:00 IMPRESSION: 1. Diffuse patchy bilateral airspace opacities with slight improved aeration. Assessment & Plan - Diagnosis (1) Acute respiratory failure with hypoxia Is this a current diagnosis for this admission?: Yes Plan: Chest x-ray slightly improved decreased FiO2 patient is indeed improving (2) Pneumonia Qualifiers: Pneumonia type: due to unspecified organism Laterality: bilateral Lung location: unspecified part of lung Qualified Code(s): J18.9 - Pneumonia, unspecified organism Is this a current diagnosis for this admission?: Yes Plan: No positive cultures Labs- All tests 24 hr 10/02/17 10/03/17 19:00 00:33 Influenza A (Rapid) NEGATIVE Influenza B (Rapid) NEGATIVE Mycoplasma pneumon IgG 328 H Mycoplasma pneumon IgM <770 (3) Sepsis Qualifiers: Sepsis type: sepsis due to unspecified organism Qualified Code(s): A41.9 - Sepsis, unspecified organism Is this a current diagnosis for this admission?: Yes (4) Sinus tachycardia Is this a current diagnosis for this admission?: Yes - Time Total Critical Time (Minutes): 45
[2017-10-05] MEDS: CEFTRIAXONE SODIUM 1,000 MG in DEXTROSE 5%-WATER 50 ML IV SCH (12:35)
[2017-10-05] MEDS: LEVOFLOXACIN 750 MG TABLET PO SCH (15:40)
[2017-10-05] MEDS: ACETAMINOPHEN 325 MG TABLET PO PRN (17:33)
[2017-10-05] MEDS: ATORVASTATIN CALCIUM 80 MG TABLET PO SCH (21:24)
--- NOTE | 2017-10-05 21:54 | PROGRESS NOTE E ---
Progress Note NAME: ZULEIMA BAILEY : 1985 AGE: 32Y DATE: 10/05/2017 ROOM: 607 SUBJECTIVE: The patient states that last night he had a few hours of chest tightness localized in the front of the left chest. He states that this increased with deep breathing and finally subsided. This sounds mostly noncardiac but the patient does have an abnormal EKG. And the patient's heart is being stressed by his lung infection. Also the patient has significant LVH on echocardiogram, hence, would need ischemic production for the patient's heart. He denies any PND, orthopnea. The patient does have a cough productive of grayish-yellow sputum. There is no hemoptysis. There is no pleuritic chest pain. There is no leg edema. There is no arrhythmia seen. There are no palpitations. There is no dizziness, syncope, or near syncope. There are no TIA or CVA symptoms. OBJECTIVE: GENERAL: On examination the patient is morbidly obese but he is well groomed. He is in no acute distress. VITAL SIGNS: He is afebrile with a temperature of 98.4 degrees Fahrenheit, pulse is 92 beats per minute, blood pressure 143/60, respirations are 22 per minute, O2 saturations are 95% on 3 liters nasal cannula. HEENT: Head is atraumatic, normocephalic. Eyes: Pupils are equal, round, regular, reactive to light and accommodation. Extraocular movements are normal. There is no conjunctival pallor. There is no scleral icterus. ENT is negative. NECK: Supple. There is no JVD. Carotids are equal. There is no bruit. There is no goiter. There is no lymphadenopathy. Trachea is central. LUNGS: There is no chest wall tenderness. There are bilateral dry crackles noted on both sides. There are no rales of CHF. There is no rhonchi or wheezing. HEART: S1 and S2 is heard. There is no S3 gallop. There is no S4 gallop. There is a systolic murmur in the left sternal border and the apex, and there is no rub. ABDOMEN: Soft, obese, nontender. There is no hepatosplenomegaly. Bowel sounds are normal. There are no tender areas or masses. EXTREMITIES: Femorals are diminished. Femorals are deep. There are no femoral bruits. Leg pulses are mildly reduced. There is no DVT or cellulitis. There is no pedal edema. There is no clubbing or cyanosis. There is no calf tenderness. CENTRAL NERVOUS SYSTEM: The patient is conscious, awake, alert, oriented x3 with no focal deficit. DIAGNOSTIC STUDIES: The patient's chest x-ray shows patchy infiltrate bilaterally which is improving. The patient's urinary legionella antigen was negative. His other cultures of the sputum are pending. His blood culture has been negative. His EKG shows sinus rhythm, LVH, cannot exclude inferolateral ischemia. The patient's white count is 12,400; hemoglobin is 13.3; hematocrit is 40.8, and his platelet count is 327,000. The patient's sodium s 144.7, potassium is 4.0, chloride is 107, CO2 is 25. The patient's BUN is 18, creatinine is 1.13, GFR is greater than 60. His glucose is 112 and his calcium is 8.5, phosphorus 4.7, magnesium is 2.2. The patient's NT-proBNP is 182. His troponin I has trended down to 0.124. IMPRESSION: 1. BILATERAL PNEUMONIA. The patient is on antibiotics with improvement. 2. ELEVATED TROPONIN I, MOST LIKELY SECONDARY TO SEPSIS/PNEUMONIA. NO DEFINITE EVIDENCE OF NON-ST ELEVATION MT/MYOCARDIAL INFARCTION BUT NOTE THAT THE PATIENT HAS AN ABNORMAL EKG AND ALSO THE PATIENT HAS SIGNIFICANT LVH ON HIS ECHO. Hence, would recommend adding nitrates, initially Nitropaste so that if the patient does not have any headaches with Nitropaste then we can start the patient on oral isosorbide as a precaution from presumed underlying coronary artery disease. Also, would increase the patient's Toprol XL to twice a day since the patient's heart rate is still good at 92 and the patient has no wheezing. Later would recommend that the patient have IV Lexiscan Cardiolite stress test. 3. ABNORMAL EKG. LVH WITH STRAIN PATTERN. As mentioned earlier would recommend a Lexiscan Cardiolite stress test. 4. SEPSIS. The patient is being treated appropriately. 5. SINUS TACHYCARDIA, THIS IS RESOLVED. The patient's heart rate is in the 90s. The patient's beta blockers have been slowly increased. No definite arrhythmia seen. 6. CHEST TIGHTNESS INCREASED ON BREATHING, MOST LIKELY NONCARDIAC, BUT MENTIONED EARLIER WITH THE PATIENT'S ABNORMAL EKG. The patient does not have a history of premature coronary artery disease, also he says his grandfather at age 72 had a heart attack. 7. MORBID OBESITY. RECOMMENDATION: 1. As mentioned earlier discussed with the patient the findings of the echo and the EKG and the lab tests and that troponin I is trending down and also the recommendation that the patient have an IV Lexiscan Cardiolite stress test. The patient's girlfriend is in the room with the patient's permission. 2. Continue respiratory treatments. 3. Continue antibiotics. 4. Continue Lovenox at DVT prophylaxis doses. 5. Continue metoprolol, small dose and increase as tolerated. This has already been increased. We will further increase it, add nitrates, and if the patient has no headaches or other side effects from the nitroglycerin then would recommend to change it to oral long-acting nitrate. Will follow with you. Discussed the case with the hospitalist, Dr. Mcnamara. Note medical decision making is highly complex in nature in view of the patient's abnormal EKG and the patient's symptoms of chest tightness. TIME SPENT: Note 35 minutes spent on this patient with more than 50% of the time spent on direct patient care, his medications have been reviewed, and medication changes have been advised and has been put in by Dr. Mcnamara. We will follow with you. Thanking you. DICTATING PHYSICIAN: YANET WADSWORTH M.D. [id number] GHANSHYAMY#: [id number] ID: [id number] JOB#: [id number] ACCT: [id number] cc: > MTDD
[2017-10-06] MEDS: NITROGLYCERIN 2% OINTMENT 1 GM PACKET TP SCH ×4 (03:13→21:09)
[2017-10-06 04:21] LABS: ABSOLUTE BASOPHILS # (AUTO) 0.2 10^3/uL (0.0-0.2); ABSOLUTE EOSINOPHILS # (AUTO) 0.4 10^3/uL (0.0-0.6); ABSOLUTE LYMPHOCYTES (AUTO) 2.1 10^3/uL (0.5-4.7); ABSOLUTE MONOCYTES (AUTO) 0.9 10^3/uL (0.1-1.4); ABSOLUTE NEUT (AUTO) 7.1 10^3/uL (1.7-8.2); BASOPHILS % (AUTO) 1.6 % (0-2); EOSINOPHILS % (AUTO) 3.9 % (0-6); HEMATOCRIT 39.3 % (37.9-51.0); HEMOGLOBIN 12.9 g/dL (13.5-17.0); LYMPHOCYTES % (AUTO) 19.4 % (13-45); MEAN CORPUSCULAR HEMOGLOBIN 27.5 pg (27.0-33.4); MEAN CORPUSCULAR HGB CONC 32.9 g/dL (32.0-36.0); MEAN CORPUSCULAR VOLUME 84 fl (80-97); MONOCYTES % (AUTO) 8.1 % (3-13); PLATELET COUNT 303 10^3/uL (150-450); RED BLOOD COUNT 4.69 10^6/uL (4.35-5.55); RED CELL DISTRIBUTION WIDTH 14.4 % (11.5-14.0); TOTAL CELLS COUNTED % (AUTO) 100 %; WHITE BLOOD COUNT 10.6 10^3/uL (4.0-10.5)
[2017-10-06 04:30] LABS: BLOOD UREA NITROGEN 16 mg/dL (7-20); CALCIUM 8.7 mg/dL (8.4-10.2); CARBON DIOXIDE 24 mmol/L (22-30); CHOLESTEROL 268.23 mg/dL (0-200); GLUCOSE 87 mg/dL (75-110); TRIGLYCERIDES 232 mg/dL (<150)
[2017-10-06 04:38] LABS: ANION GAP 10 (5-19); CHLORIDE 107 mmol/L (98-107); POTASSIUM 4.5 mmol/L (3.6-5.0); SODIUM 140.9 mmol/L (137-145)
[2017-10-06 04:41] LABS: DIRECT LDL 237 mg/dL (<100)
[2017-10-06 04:45] LABS: VLDL CHOLESTEROL 46.4 mg/dL (10-31)
[2017-10-06 05:31] LABS: ARTERIAL BLOOD BASE EXCESS -1.1 mmol/L; ARTERIAL BLOOD H2CO3 1.04 mmol/L (1.05-1.35); ARTERIAL BLOOD HCO3 22.5 mmol/L (20-26); ARTERIAL BLOOD O2 SATURATION 96.2 % (94-98); ARTERIAL BLOOD PCO2 34.5 mmHg (35-45); ARTERIAL BLOOD PH 7.43 (7.35-7.45); ARTERIAL BLOOD PO2 79.7 mmHg (80-100); ARTERIAL BLOOD TOTAL CO2 23.6 mmol/L (23-27)
[2017-10-06 05:32] LABS: ARTERIAL BLOOD FIO2 3L
--- NOTE | 2017-10-06 06:30 | RADIOLOGY REPORT (SQ) ---
EXAM DESCRIPTION: Single view of the chest CLINICAL HISTORY: pna COMPARISON: 10/05/2017 FINDINGS: Single frontal view of the chest. Cardiomegaly. Diffuse patchy bilateral airspace opacities are stable. No pneumothorax or pleural effusion. No displaced rib fractures identified. Upper abdominal soft tissues are unremarkable. IMPRESSION: 1. Diffuse patchy bilateral airspace opacities are stable.
--- NOTE | 2017-10-06 08:52 | PDOC PROGRESS REPORT ---
Subjective Progress Note for:: 10/06/17 Subjective:: Patient is feeling better no chest pain ; no fever or chills anxious in ICU did not sleep well still SOB when ambulates pulse oxymetry drops with minimal exercise to 85% with fast recovery at rest Reason For Visit: PNEUMONIA, ACUTE HYPOXIC RESPIRATORY FAILURE Physical Exam Vital Signs: Temp Pulse Resp BP Pulse Ox 97.4 F 90 32 H 149/93 H 89 L 10/05/17 23:40 10/05/17 23:00 10/06/17 04:33 10/06/17 04:33 10/06/17 04:33 Intake & Output 10/05/17 10/06/17 10/07/17 00:59 00:59 00:59 Intake Total 1830 1450 200 Output Total 1400 1300 400 Balance 430 150 -200 Weight 125.1 kg 124.9 kg 125.7 kg General appearance: PRESENT: no acute distress, cooperative, well-developed, well-nourished Head exam: PRESENT: atraumatic, normocephalic Eye exam: PRESENT: conjunctiva pink, EOMI, PERRLA. ABSENT: scleral icterus Neck exam: ABSENT: carotid bruit, JVD, lymphadenopathy, thyromegaly Respiratory exam: PRESENT: clear to auscultation hansel. ABSENT: rales, rhonchi, wheezes Cardiovascular exam: PRESENT: tachycardia Pulses: PRESENT: normal dorsalis pedis pul GI/Abdominal exam: PRESENT: normal bowel sounds, soft. ABSENT: distended, guarding, mass, organolmegaly, rebound, tenderness Extremities exam: PRESENT: full ROM. ABSENT: calf tenderness, clubbing, pedal edema Musculoskeletal exam: PRESENT: full ROM Neurological exam: PRESENT: alert, awake, oriented to person, oriented to place , oriented to time, oriented to situation, CN II-XII grossly intact. ABSENT: motor sensory deficit Skin exam: PRESENT: dry, intact, warm. ABSENT: cyanosis, rash Results Laboratory Results: 10/06/17 04:04 10/06/17 04:04 10/06/17 10/06/17 10/06/17 04:04 04:04 05:15 WBC 10.6 H RBC 4.69 Hgb 12.9 L Hct 39.3 MCV 84 MCH 27.5 MCHC 32.9 RDW 14.4 H Plt Count 303 Seg Neutrophils % 67.0 Lymphocytes % 19.4 Monocytes % 8.1 Eosinophils % 3.9 Basophils % 1.6 Absolute Neutrophils 7.1 Absolute Lymphocytes 2.1 Absolute Monocytes 0.9 Absolute Eosinophils 0.4 Absolute Basophils 0.2 Carbonic Acid 1.04 L HCO3/H2CO3 Ratio 21:1 ABG pH 7.43 ABG pCO2 34.5 L ABG pO2 79.7 L ABG HCO3 22.5 ABG O2 Saturation 96.2 ABG Base Excess -1.1 FiO2 3L Sodium 140.9 Potassium 4.5 Chloride 107 Carbon Dioxide 24 Anion Gap 10 BUN 16 Creatinine 1.06 Est GFR ( Amer) > 60 Est GFR (Non-Af Amer) > 60 Glucose 87 Calcium 8.7 Triglycerides 232 H Cholesterol 268.23 H LDL Cholesterol Direct 237 H VLDL Cholesterol 46.4 H HDL Cholesterol 17 L 10/02/17 22:30 Sputum Gram Stain - Final 10/02/17 22:30 Sputum Sputum Culture - Final NORMAL SELVIN 10/03/17 01:19 Nasopharyngeal Chlamydia pneumoniae (PCR) - Final 10/02/17 16:18 Clean Catch Midstream Legionella Urinary Antigen - Final 10/02/17 10/02/17 10/02/17 16:00 16:00 20:31 Creatine Kinase 785 H 660 H CK-MB (CK-2) 12.90 H Troponin I 0.396 NT-Pro-B Natriuret Pep 10/02/17 10/03/17 10/03/17 20:31 02:34 02:34 Creatine Kinase 523 H CK-MB (CK-2) 12.10 H 10.00 H Troponin I 0.273 0.279 NT-Pro-B Natriuret Pep 10/03/17 10/03/17 10/03/17 02:34 08:43 08:43 Creatine Kinase 413 H CK-MB (CK-2) 9.81 H Troponin I 0.189 NT-Pro-B Natriuret Pep 640 H 10/05/17 03:58 Creatine Kinase CK-MB (CK-2) Troponin I 0.124 NT-Pro-B Natriuret Pep 182 H Impressions: Chest/Abdomen CTA 10/02/17 10:53 IMPRESSION: Bilateral diffuse pulmonary infiltrates with nodularity in consolidation. Differential considerations include infectious etiologies, pulmonary edema or ARDS. Hypersensitivity pneumonitis considered less likely given absence of air trapping. Chest X-Ray 10/06/17 06:00 IMPRESSION: 1. Diffuse patchy bilateral airspace opacities are stable. Assessment & Plan - Diagnosis (1) Abnormal EKG Is this a current diagnosis for this admission?: Yes Plan: Sinus tachycardia; peaked T's suggestive of ischemia Case discussed with cardiology We will increase metoprolol, add Ecotrin, Lipitor and Nitropaste Continue Lovenox prophylaxis (2) Elevated troponin I level Is this a current diagnosis for this admission?: Yes Plan: Likely acute non-STEMI type II secondary to hypoxemia and pneumonia An echocardiogram was performed; it did not show wall motion abnormalities LVEF was normal with moderate concentric ventricular hypertrophy and grade 2/6 diastolic dysfunction troponins in downward trend for stress testing prior to d/c - likely on wednesday when pulmonary status has improved (3) Pneumonia Qualifiers: Pneumonia type: due to unspecified organism Laterality: bilateral Lung location: unspecified part of lung Qualified Code(s): J18.9 - Pneumonia, unspecified organism Is this a current diagnosis for this admission?: Yes Plan: Community-acquired pneumonia No sputum is available Treat with ceftriaxone and Levaquin CXR slighly improved continue present management (4) Sepsis Qualifiers: Sepsis type: sepsis due to unspecified organism Qualified Code(s): A41.9 - Sepsis, unspecified organism Is this a current diagnosis for this admission?: Yes (5) Sinus tachycardia Is this a current diagnosis for this admission?: Yes Plan: is improving with metoprolol (6) Acute respiratory failure with hypoxia Is this a current diagnosis for this admission?: Yes (7) TRISH (obstructive sleep apnea) Is this a current diagnosis for this admission?: Yes Plan: Patient will need sleep study after discharge when clinically stable patient may need to be d/c with nasal O2 at night if qualifies will schedule sleep study with Dr Gregory in 2-4 weeks when pneumonia has resolved (8) Hyperlipidemia Is this a current diagnosis for this admission?: Yes Plan: continue lipitor - Time Time Spent with patient: patient may be transfered to telemetry Time Spent with patient: 25-34 minutes - Inpatient Certification Based on my medical assessment, after consideration of the patient's comorbidities, presenting symptoms, or acuity I expect that the services needed warrant INPATIENT care.: Yes I certify that my determination is in accordance with my understanding of Medicare's requirements for reasonable and necessary INPATIENT services [42 CFR 412.3e].: Yes Medical Necessity: Need For Continuous Telemetry Monitoring, Need for IV Antibiotics
--- NOTE | 2017-10-06 10:07 | PDOC PROGRESS REPORT ---
Subjective Progress Note for:: 10/06/17 Subjective:: Continues to wear BiPAP at night is a little better Reason For Visit: PNEUMONIA, ACUTE HYPOXIC RESPIRATORY FAILURE Physical Exam Vital Signs: Temp Pulse Resp BP Pulse Ox 97.4 F 90 32 H 149/93 H 89 L 10/05/17 23:40 10/05/17 23:00 10/06/17 04:33 10/06/17 04:33 10/06/17 04:33 Intake & Output 10/05/17 10/06/17 10/07/17 06:59 06:59 06:59 Intake Total 1830 1650 Output Total 1400 1300 Balance 430 350 Weight 124.9 kg 125.7 kg General appearance: PRESENT: no acute distress, disheveled, morbidly obese Head exam: PRESENT: atraumatic, normocephalic Eye exam: PRESENT: conjunctiva pale, EOMI. ABSENT: nystagmus, periorbital swelling, scleral icterus Mouth exam: PRESENT: dry mucosa, neck supple, tongue midline Neck exam: ABSENT: carotid bruit, JVD, lymphadenopathy, thyromegaly, tracheal deviation, tracheostomy Respiratory exam: PRESENT: decreased breath sounds, prolonged expiratory phas, rhonchi, unlabored, wheezes Cardiovascular exam: PRESENT: RRR, +S1, +S2 Pulses: PRESENT: normal radial pulses GI/Abdominal exam: PRESENT: diminished bowel sounds, normal bowel sounds, soft Extremities exam: PRESENT: full ROM. ABSENT: calf tenderness, clubbing, joint swelling, pedal edema Musculoskeletal exam: PRESENT: full ROM. ABSENT: deformity, dislocation Neurological exam: PRESENT: alert, awake Psychiatric exam: PRESENT: normal mood Skin exam: PRESENT: dry, warm Results Laboratory Results: 10/06/17 04:04 10/06/17 04:04 10/06/17 10/06/17 10/06/17 04:04 04:04 05:15 WBC 10.6 H RBC 4.69 Hgb 12.9 L Hct 39.3 MCV 84 MCH 27.5 MCHC 32.9 RDW 14.4 H Plt Count 303 Seg Neutrophils % 67.0 Lymphocytes % 19.4 Monocytes % 8.1 Eosinophils % 3.9 Basophils % 1.6 Absolute Neutrophils 7.1 Absolute Lymphocytes 2.1 Absolute Monocytes 0.9 Absolute Eosinophils 0.4 Absolute Basophils 0.2 Carbonic Acid 1.04 L HCO3/H2CO3 Ratio 21:1 ABG pH 7.43 ABG pCO2 34.5 L ABG pO2 79.7 L ABG HCO3 22.5 ABG O2 Saturation 96.2 ABG Base Excess -1.1 FiO2 3L Sodium 140.9 Potassium 4.5 Chloride 107 Carbon Dioxide 24 Anion Gap 10 BUN 16 Creatinine 1.06 Est GFR ( Amer) > 60 Est GFR (Non-Af Amer) > 60 Glucose 87 Calcium 8.7 Triglycerides 232 H Cholesterol 268.23 H LDL Cholesterol Direct 237 H VLDL Cholesterol 46.4 H HDL Cholesterol 17 L 10/02/17 22:30 Sputum Gram Stain - Final 10/02/17 22:30 Sputum Sputum Culture - Final NORMAL SELVIN 10/03/17 01:19 Nasopharyngeal Chlamydia pneumoniae (PCR) - Final 10/02/17 16:18 Clean Catch Midstream Legionella Urinary Antigen - Final 10/02/17 10/02/17 10/02/17 16:00 16:00 20:31 Creatine Kinase 785 H 660 H CK-MB (CK-2) 12.90 H Troponin I 0.396 NT-Pro-B Natriuret Pep 10/02/17 10/03/17 10/03/17 20:31 02:34 02:34 Creatine Kinase 523 H CK-MB (CK-2) 12.10 H 10.00 H Troponin I 0.273 0.279 NT-Pro-B Natriuret Pep 10/03/17 10/03/17 10/03/17 02:34 08:43 08:43 Creatine Kinase 413 H CK-MB (CK-2) 9.81 H Troponin I 0.189 NT-Pro-B Natriuret Pep 640 H 10/05/17 03:58 Creatine Kinase CK-MB (CK-2) Troponin I 0.124 NT-Pro-B Natriuret Pep 182 H Impressions: Chest/Abdomen CTA 10/02/17 10:53 IMPRESSION: Bilateral diffuse pulmonary infiltrates with nodularity in consolidation. Differential considerations include infectious etiologies, pulmonary edema or ARDS. Hypersensitivity pneumonitis considered less likely given absence of air trapping. Chest X-Ray 10/06/17 06:00 IMPRESSION: 1. Diffuse patchy bilateral airspace opacities are stable. Assessment & Plan - Diagnosis (1) Acute respiratory failure with hypoxia Is this a current diagnosis for this admission?: Yes Plan: Continues to progress ABG on 2 L acceptable (2) Pneumonia Qualifiers: Pneumonia type: due to unspecified organism Laterality: bilateral Lung location: unspecified part of lung Qualified Code(s): J18.9 - Pneumonia, unspecified organism Is this a current diagnosis for this admission?: Yes Plan: No positive cultures :Elevated mycoplasma titer Labs- All tests 24 hr 10/02/17 10/03/17 19:00 00:33 Influenza A (Rapid) NEGATIVE Influenza B (Rapid) NEGATIVE Mycoplasma pneumon IgG 328 H Mycoplasma pneumon IgM <770 (3) Sepsis Qualifiers: Sepsis type: sepsis due to unspecified organism Qualified Code(s): A41.9 - Sepsis, unspecified organism Is this a current diagnosis for this admission?: No (4) Sinus tachycardia Is this a current diagnosis for this admission?: Yes Plan: As per cardiology T waves appear to be flipped
[2017-10-06] MEDS: LACTOBACILLUS ACIDOPHILUS 250 MG TAB PO SCH ×2 (10:28→17:50)
[2017-10-06] MEDS: METOPROLOL SUCCINATE 25 MG TAB.SR.24H PO SCH ×2 (10:29→21:10)
[2017-10-06] MEDS: ASPIRIN 325 MG TABLET, ENT COATED PO SCH (10:30)
[2017-10-06] MEDS: GUAIFENESIN 600 MG TABLET.SA PO SCH ×2 (10:30→21:05)
[2017-10-06] MEDS: LISINOPRIL 10 MG TABLET PO SCH (10:31)
[2017-10-06] MEDS: FAMOTIDINE 20 MG TABLET PO SCH ×2 (10:32→21:05)
[2017-10-06] MEDS: ENOXAPARIN SODIUM INJ 40 MG/0.4 ML DISP.SYRIN SUBCUT SCH (10:38)
[2017-10-06] MEDS: ACETAMINOPHEN 325 MG TABLET PO PRN (10:46)
[2017-10-06] MEDS: DOCUSATE SODIUM 100 MG CAPSULE PO SCH ×2 (10:47→17:49)
[2017-10-06] MEDS: LEVALBUTEROL HCL NEB 0.63 MG/3 ML AMPUL NEB PRN ×2 (11:07→20:21)
[2017-10-06] MEDS: ACETYLCYSTEINE 20% SOLN 800 MG/4 ML VIAL.NEB NEB SCH ×2 (11:08→20:21)
[2017-10-06] MEDS: LEVOFLOXACIN 750 MG TABLET PO SCH (14:00)
[2017-10-06] MEDS: CEFTRIAXONE SODIUM 1,000 MG in DEXTROSE 5%-WATER 50 ML IV SCH (14:00)
[2017-10-06] MEDS: ATORVASTATIN CALCIUM 80 MG TABLET PO SCH (21:05)
--- NOTE | 2017-10-06 21:25 | PROGRESS NOTE E ---
Progress Note NAME: ZULEIMA BAILEY : 1985 AGE: 32Y DATE: 10/06/2017 ROOM: 607 SUBJECTIVE: The patient states his shortness of breath is slightly improved. He is up to sitting in the chair. There is no chest tightness or symptoms suggestive of angina. There is no PND, orthopnea or leg edema. There is no arrhythmia seen on the monitor. There are no TIA or CVA symptoms. The patient denies any dizziness, near syncope or syncope. OBJECTIVE: GENERAL: On examination, the patient is morbidly obese. VITAL SIGNS: He is afebrile with a temperature of 98.7 degrees Fahrenheit, pulse is 83 beats per minute, blood pressure 158/66, respirations are 20 per minute, O2 sats are 97% on 2 L nasal cannula. HEENT: Head is atraumatic, normocephalic. Eyes: Pupils are equal, round, regular, reactive to light and accommodation. Extraocular movements are normal. There is no conjunctival pallor. There is no scleral icterus. ENT is negative. NECK: Supple. There is no JVD. Carotids are equal. There is no bruit. There is no lymphadenopathy. There is no goiter. Trachea central. LUNGS: Show bilateral few dry crackles, less than yesterday. There is no rhonchi or wheezing. There are no rales of CHF. HEART: S1 and S2 are heard. There is no S3 gallop. There is no S4 gallop. A systolic murmur, left sternal border on the apex. There is no rub. ABDOMEN: Soft, obese, nontender. There is no hepatosplenomegaly. Bowel sounds are well heard. EXTREMITIES: Femorals are diminished. Femorals are deep. Leg pulses Leg pulses diminished. There are no femoral bruits. There is no pedal edema. There is no DVT or cellulitis. There is no cyanosis or clubbing. There is no calf tenderness. There is no pedal edema. CENTRAL NERVOUS SYSTEM: The patient is conscious, awake, alert, oriented x3 with no focal deficit. PSYCHIATRIC: The patient does not appear to be anxious or depressed. INTAKE AND OUTPUT: The patient's 24-hour intake is 1650 mL. Output is 1300 mL. IMAGING STUDIES: The patient's chest x-ray shows improvement in the pneumonia. LABORATORY DATA: The patient's white count has come down to 10,600; hemoglobin is 12.9; hematocrit is 39.3; platelet count is 303,000. The patient's sodium is 120.9, potassium 4.5; the patient's chloride is 107, CO2 is 24; the patient's BUN is 16, creatinine is 1.06, GFR is greater than 60; glucose is 87. His hemoglobin A1c is 5.3. Calcium is 8.7. The patient's triglycerides are 232; the patient's total cholesterol is 268; his LDL cholesterol is severely elevated at 237; his HDL cholesterol is low at 17. The patient's abscess shows a pH of 7.43, pCO2 34.5, pO2 79.7 on 3 L with an O2 sat of 96.2%. The patient's nasopharyngeal sample shows no Legionella pneumonia DNA detected. IMPRESSION: 1. BILATERAL PNEUMONIA. Patient on antibiotics, seems to be improving. 2. ELEVATED TROPONIN I, MOST LIKELY SECONDARY TO SEPSIS/PNEUMONIA WHICH HAS TRENDED DOWN. 3. ABNORMAL EKG ELEVATION WITH STRAIN PATTERN. Later would recommend that the patient have a Lexiscan Cardiolite stress test. 4. SEPSIS. Patient being treated appropriately and the patient is improving. 5. SINUS TACHYCARDIA. At present, heart rate is in the 80s. 6. CHEST TIGHTNESS, RESOLVED, MOST LIKELY NONCARDIAC. 7. HYPERTENSION. BLOOD PRESSURE IS SLIGHTLY ELEVATED. Patient has been started on lisinopril 10 mg p.o. daily. We will see if this needs to be increased. 8. HYPERLIPIDEMIA AND HYPERTRIGLYCERIDEMIA WITH HIGH TRIGLYCERIDES, HIGH LDL, AND LOW HDL LEVELS. Note that the patient is on the maximum dose of Lipitor. The patient later will be given dietary education. 9. MORBID OBESITY. RECOMMENDATION: Continue current antibiotics. Continue oxygen support. Continue respiratory treatments. Continue Lovenox for DVT prophylaxis doses. Continue metoprolol and increase the lisinopril as tolerated. Note: Medical decision making is of moderate complexity. TIME SPENT: Thirty minutes spent on this patient with more than 50% of the time spent on direct patient care. Chest x-ray improvement has been discussed with the patient. We will recheck the patient's troponin I in the a.m. DICTATING PHYSICIAN: YANET WADSWORTH M.D. [id number] PHY#: [id number] ID: [id number] JOB#: [id number] ACCT: [id number] cc:YANET WADSWORTH M.D. > ESTRELLA
[2017-10-07] MEDS: NITROGLYCERIN 2% OINTMENT 1 GM PACKET TP SCH ×4 (03:32→21:20)
[2017-10-07] MEDS: LEVALBUTEROL HCL NEB 0.63 MG/3 ML AMPUL NEB PRN ×2 (07:35→20:24)
[2017-10-07] MEDS: ACETYLCYSTEINE 20% SOLN 800 MG/4 ML VIAL.NEB NEB SCH ×2 (07:36→20:23)
[2017-10-07] MEDS: METOPROLOL SUCCINATE 25 MG TAB.SR.24H PO SCH ×2 (09:01→21:23)
[2017-10-07] MEDS: FAMOTIDINE 20 MG TABLET PO SCH ×2 (09:02→21:23)
[2017-10-07] MEDS: GUAIFENESIN 600 MG TABLET.SA PO SCH ×2 (09:02→21:23)
[2017-10-07] MEDS: LACTOBACILLUS ACIDOPHILUS 250 MG TAB PO SCH ×2 (09:02→18:02)
[2017-10-07] MEDS: LISINOPRIL 10 MG TABLET PO SCH ×2 (09:03→22:03)
[2017-10-07] MEDS: ASPIRIN 325 MG TABLET, ENT COATED PO SCH (09:03)
[2017-10-07] MEDS: ENOXAPARIN SODIUM INJ 40 MG/0.4 ML DISP.SYRIN SUBCUT SCH (09:04)
[2017-10-07] MEDS: DOCUSATE SODIUM 100 MG CAPSULE PO SCH ×2 (09:16→18:03)
--- NOTE | 2017-10-07 10:55 | PDOC PROGRESS REPORT ---
Subjective Progress Note for:: 10/07/17 Subjective:: I am better Reason For Visit: PNEUMONIA, ACUTE HYPOXIC RESPIRATORY FAILURE Physical Exam Vital Signs: Temp Pulse Resp BP Pulse Ox 98.1 F 80 18 153/68 H 97 10/07/17 07:45 10/07/17 07:45 10/07/17 07:45 10/07/17 07:45 10/07/17 07:45 Intake & Output 10/06/17 10/07/17 10/08/17 06:59 06:59 06:59 Intake Total 1650 682 Output Total 1300 2300 Balance 350 -1618 Weight 125.7 kg 124.8 kg General appearance: PRESENT: no acute distress, cooperative, disheveled, morbidly obese Head exam: PRESENT: atraumatic, normocephalic Eye exam: PRESENT: conjunctiva pink, EOMI. ABSENT: nystagmus, periorbital swelling, scleral icterus Mouth exam: PRESENT: dry mucosa, neck supple, tongue midline Neck exam: ABSENT: carotid bruit, JVD, lymphadenopathy, thyromegaly, tracheal deviation, tracheostomy Respiratory exam: PRESENT: decreased breath sounds, prolonged expiratory phas, rales, rhonchi, unlabored. ABSENT: retraction, stridor, tachypnea Cardiovascular exam: PRESENT: RRR, +S1, +S2 Pulses: PRESENT: normal radial pulses GI/Abdominal exam: PRESENT: normal bowel sounds, soft Extremities exam: ABSENT: calf tenderness, clubbing, joint swelling, pedal edema , +1 edema Musculoskeletal exam: ABSENT: deformity, dislocation Neurological exam: PRESENT: alert, awake Psychiatric exam: PRESENT: normal mood Skin exam: PRESENT: dry, warm Results Laboratory Results: 10/06/17 04:04 10/06/17 04:04 10/02/17 22:30 Sputum Gram Stain - Final 10/02/17 22:30 Sputum Sputum Culture - Final NORMAL SELVIN 10/03/17 01:19 Nasopharyngeal Chlamydia pneumoniae (PCR) - Final 10/02/17 10/02/17 10/02/17 16:00 16:00 20:31 Creatine Kinase 785 H 660 H CK-MB (CK-2) 12.90 H Troponin I 0.396 NT-Pro-B Natriuret Pep 10/02/17 10/03/17 10/03/17 20:31 02:34 02:34 Creatine Kinase 523 H CK-MB (CK-2) 12.10 H 10.00 H Troponin I 0.273 0.279 NT-Pro-B Natriuret Pep 10/03/17 10/03/17 10/03/17 02:34 08:43 08:43 Creatine Kinase 413 H CK-MB (CK-2) 9.81 H Troponin I 0.189 NT-Pro-B Natriuret Pep 640 H 10/05/17 10/07/17 03:58 04:08 Creatine Kinase CK-MB (CK-2) Troponin I 0.124 0.089 NT-Pro-B Natriuret Pep 182 H Impressions: Chest/Abdomen CTA 10/02/17 10:53 IMPRESSION: Bilateral diffuse pulmonary infiltrates with nodularity in consolidation. Differential considerations include infectious etiologies, pulmonary edema or ARDS. Hypersensitivity pneumonitis considered less likely given absence of air trapping. Chest X-Ray 10/06/17 06:00 IMPRESSION: 1. Diffuse patchy bilateral airspace opacities are stable. Assessment & Plan - Diagnosis (1) Acute respiratory failure with hypoxia Is this a current diagnosis for this admission?: Yes Plan: Continues to progress (2) Pneumonia Qualifiers: Pneumonia type: due to unspecified organism Laterality: bilateral Lung location: unspecified part of lung Qualified Code(s): J18.9 - Pneumonia, unspecified organism Is this a current diagnosis for this admission?: Yes Plan: No positive cultures :Elevated mycoplasma titer Labs- All tests 24 hr 10/02/17 10/03/17 19:00 00:33 Influenza A (Rapid) NEGATIVE Influenza B (Rapid) NEGATIVE Mycoplasma pneumon IgG 328 H Mycoplasma pneumon IgM <770 (3) Sepsis Qualifiers: Sepsis type: sepsis due to unspecified organism Qualified Code(s): A41.9 - Sepsis, unspecified organism Is this a current diagnosis for this admission?: No (4) Sinus tachycardia Is this a current diagnosis for this admission?: Yes Plan: Being followed by cardiology, not currently tachycardic. Hypertriglyceridemia hyperactive cholesterolemia with a low HDL this will be maxed out on statins
[2017-10-07] MEDS: LEVOFLOXACIN 750 MG TABLET PO SCH (14:56)
[2017-10-07] MEDS: CEFTRIAXONE SODIUM 1,000 MG in DEXTROSE 5%-WATER 50 ML IV SCH (14:56)
--- NOTE | 2017-10-07 16:25 | PDOC PROGRESS REPORT ---
Subjective Progress Note for:: 10/07/17 Subjective:: Patient is feeling better no chest pain ; no fever or chills anxious in ICU did not sleep well still SOB when ambulates pulse oxymetry drops with minimal exercise to 85% with fast recovery at rest 10/07 Patient is feeling a lot better No fever no chills Minimal shortness of breath No tachycardia or tachypnea Alert and awake Reason For Visit: PNEUMONIA, ACUTE HYPOXIC RESPIRATORY FAILURE Physical Exam Vital Signs: Temp Pulse Resp BP Pulse Ox 98.1 F 74 25 H 156/84 H 94 10/07/17 12:00 10/07/17 12:00 10/07/17 15:00 10/07/17 12:39 10/07/17 15:00 Intake & Output 10/06/17 10/07/17 10/08/17 00:59 00:59 00:59 Intake Total 1450 882 Output Total 1300 2050 650 Balance 150 -1168 -650 Weight 124.9 kg 125.7 kg 124.9 kg General appearance: PRESENT: no acute distress, well-developed, well-nourished Head exam: PRESENT: atraumatic, normocephalic Eye exam: PRESENT: conjunctiva pink, EOMI, PERRLA. ABSENT: scleral icterus Neck exam: ABSENT: carotid bruit, JVD, lymphadenopathy, thyromegaly Respiratory exam: PRESENT: clear to auscultation hansel. ABSENT: rales, rhonchi, wheezes Cardiovascular exam: PRESENT: RRR. ABSENT: diastolic murmur, rubs, systolic murmur Pulses: PRESENT: normal dorsalis pedis pul GI/Abdominal exam: PRESENT: normal bowel sounds, soft. ABSENT: distended, guarding, mass, organolmegaly, rebound, tenderness Extremities exam: PRESENT: full ROM. ABSENT: calf tenderness, clubbing, pedal edema Musculoskeletal exam: PRESENT: ambulatory, full ROM Neurological exam: PRESENT: alert, awake, oriented to person, oriented to place , oriented to time, oriented to situation, CN II-XII grossly intact. ABSENT: motor sensory deficit Results Laboratory Results: 10/06/17 04:04 10/06/17 04:04 10/02/17 14:09 Blood Blood Culture - Final NO GROWTH IN 5 DAYS 10/02/17 10/02/17 10/02/17 16:00 16:00 20:31 Creatine Kinase 785 H 660 H CK-MB (CK-2) 12.90 H Troponin I 0.396 NT-Pro-B Natriuret Pep 10/02/17 10/03/17 10/03/17 20:31 02:34 02:34 Creatine Kinase 523 H CK-MB (CK-2) 12.10 H 10.00 H Troponin I 0.273 0.279 NT-Pro-B Natriuret Pep 10/03/17 10/03/17 10/03/17 02:34 08:43 08:43 Creatine Kinase 413 H CK-MB (CK-2) 9.81 H Troponin I 0.189 NT-Pro-B Natriuret Pep 640 H 10/05/17 10/07/17 03:58 04:08 Creatine Kinase CK-MB (CK-2) Troponin I 0.124 0.089 NT-Pro-B Natriuret Pep 182 H Impressions: Chest/Abdomen CTA 10/02/17 10:53 IMPRESSION: Bilateral diffuse pulmonary infiltrates with nodularity in consolidation. Differential considerations include infectious etiologies, pulmonary edema or ARDS. Hypersensitivity pneumonitis considered less likely given absence of air trapping. Chest X-Ray 10/06/17 06:00 IMPRESSION: 1. Diffuse patchy bilateral airspace opacities are stable. Assessment & Plan - Diagnosis (1) Abnormal EKG Is this a current diagnosis for this admission?: Yes Plan: Sinus tachycardia; peaked T's suggestive of ischemia Case discussed with cardiology We will increase metoprolol, add Ecotrin, Lipitor and Nitropaste Continue Lovenox prophylaxis Troponins in a downward trend 10/02/17 10/02/17 10/02/17 10:53 16:00 20:31 Troponin I 0.270 0.396 0.273 10/03/17 10/03/17 10/05/17 02:34 08:43 03:58 Troponin I 0.279 0.189 0.124 10/07/17 04:08 Troponin I 0.089 Continue the present management Patient to be scheduled for stress test on Wednesday Continue cardiac monitoring (2) Elevated troponin I level Is this a current diagnosis for this admission?: Yes Plan: Likely acute non-STEMI type II secondary to hypoxemia and pneumonia An echocardiogram was performed; it did not show wall motion abnormalities LVEF was normal with moderate concentric ventricular hypertrophy and grade 2/6 diastolic dysfunction troponins in downward trend for stress testing prior to d/c - likely on wednesday when pulmonary status has improved (3) Pneumonia Qualifiers: Pneumonia type: due to unspecified organism Laterality: bilateral Lung location: unspecified part of lung Qualified Code(s): J18.9 - Pneumonia, unspecified organism Is this a current diagnosis for this admission?: Yes Plan: Community-acquired pneumonia No sputum is available Treat with ceftriaxone and Levaquin CXR slighly improved continue present management 10/07 Continues to improve Continue present antibiotics (4) Sepsis Qualifiers: Sepsis type: sepsis due to unspecified organism Qualified Code(s): A41.9 - Sepsis, unspecified organism Is this a current diagnosis for this admission?: No (5) Sinus tachycardia Is this a current diagnosis for this admission?: Yes (6) Acute respiratory failure with hypoxia Is this a current diagnosis for this admission?: Yes Plan: Is improving Patient is off BiPAP during the day Continue O2 supplementation Continues to improve Patient is oxygenating adequately on room air (7) TRISH (obstructive sleep apnea) Is this a current diagnosis for this admission?: Yes (8) Hyperlipidemia Is this a current diagnosis for this admission?: Yes Plan: continue lipitor - Time Time Spent with patient: 25-34 minutes - Patient is awaiting transfer to telemetry unit ; patient likely will remain in the hospital over the weekend Stress test on Wednesday
[2017-10-07] MEDS: ATORVASTATIN CALCIUM 80 MG TABLET PO SCH (21:22)
--- NOTE | 2017-10-07 22:00 | PROGRESS NOTE E ---
Progress Note NAME: ZULEIMA BAILEY : 1985 AGE: 32Y DATE: 10/07/2017 ROOM: 607 SUBJECTIVE: Note that the patient states that his shortness of breath is much improved. He has no chest tightness or chest pain. There is no PND, orthopnea or leg edema. There is no arrhythmia seen. There are no palpitations. There are no TIA or CVA symptoms. The patient still has some cough which is scanty and dark sputum with a little reddish tint. There is no pleuritic chest pain. The patient's shortness of breath with walking around in the room is much improved. OBJECTIVE: GENERAL: On examination, the patient is morbidly obese, in no acute distress. VITAL SIGNS: He is afebrile with a temperature of 98.7 degrees Fahrenheit, pulse is 72 beats per minute, blood pressure 156/80, respirations are 22 per minute, O2 sats are 97% on 1 L nasal cannula. HEENT: Head is atraumatic, normocephalic. Eyes: Pupils are equal, round, regular, reactive to light and accommodation. Extraocular movements are normal. There is no conjunctival pallor. There is no scleral icterus. NECK: Supple. There is no JVD. Carotids are equal. There is no bruit. There is no lymphadenopathy. There is no goiter. Trachea central. LUNGS: Show a few bilateral dry crackles. There are no rales of CHF. There is no rhonchi or wheezing. HEART: S1 and S2 are heard. There is no S3 gallop. There is no S4 gallop. A systolic murmur, left sternal border on the apex. There is no rub. ABDOMEN: Soft, obese, nontender. There is no hepatosplenomegaly. Bowel sounds are well heard. EXTREMITIES: Femorals are diminished. Femorals are deep. Leg pulses diminished. There are no femoral bruits. There is no pedal edema. There is no DVT or cellulitis. There is no cyanosis or clubbing. There is no pedal edema. There is no calf tenderness. CENTRAL NERVOUS SYSTEM: The patient is conscious, awake, alert, oriented x3 with no focal deficit. PSYCHIATRIC: The patient's judgment and insight are intact. His affect is normal. LABORATORY DATA: The patient's troponin I is currently trended down to 0.089. IMPRESSION: 1. BILATERAL PNEUMONIA IMPROVING ON ANTIBIOTICS. 2. ELEVATED TROPONIN I, MOST LIKELY SECONDARY TO SEPSIS/PNEUMONIA WHICH IS TRENDING DOWN AND ALSO A COMPONENT OF SIGNIFCANT CHF LENDING TO AN ELEVATION OF TROPONIN I. 3. ABNORMAL EKG WITH LEFT VENTRICULAR HYPERTROPHY STRAIN PATTERN. Once the patient's chest x-ray shows clearance from the pneumonia, then will recommend that the patient have IV Lexiscan Cardiolite stress test. Will aim for Wednesday. This has been discussed with the patient. The procedure, benefits, risks and complications have all been discussed with him in detail. 4. SINUS TACHYCARDIA, RESOLVED. 5. CHEST TIGHTNESS, RESOLVED. 6. SEPSIS, MUCH IMPROVED. Patient being treated appropriately with antibiotics. 7. HYPERTENSION. BLOOD PRESSURE IS SLIGHTLY ELEVATED. The patient was started on lisinopril 10 mg p.o. daily. We will increase it to 10 mg p.o. b.i.d. 8. HYPERLIPIDEMIA AND HYPERTRIGLYCERIDEMIA WITH HIGH TRIGLYCERIDES AND HGH LDL LEVELS AND LOW HDL LEVELS. Note that the patient later will benefit from dietary consult. 9. MORBID OBESITY. RECOMMENDATION: Continue current antibiotics. Increase the patient's lisinopril which I will do. Continue oxygen support. Will recheck the chest x-ray on Wednesday. Will aim for a stress test most likely on Wednesday in the form of IV Lexiscan Cardiolite. His medications have been reviewed and adjusted. Case discussed with the patient and also with the attending physician on the case. Medical decision making is of moderate complexity. Will follow with you. Thanking you. DICTATING PHYSICIAN: YANET WADSWORTH M.D. [id number] AUREA#: [id number] ID: [id number] JOB#: [id number] ACCT: [id number] cc: > YAIRD
[2017-10-08] MEDS: NITROGLYCERIN 2% OINTMENT 1 GM PACKET TP SCH ×4 (03:42→21:38)
[2017-10-08 04:29] LABS: ABSOLUTE BASOPHILS # (AUTO) 0.1 10^3/uL (0.0-0.2); ABSOLUTE EOSINOPHILS # (AUTO) 0.4 10^3/uL (0.0-0.6); ABSOLUTE LYMPHOCYTES (AUTO) 2.1 10^3/uL (0.5-4.7); ABSOLUTE MONOCYTES (AUTO) 0.9 10^3/uL (0.1-1.4); ABSOLUTE NEUT (AUTO) 8.1 10^3/uL (1.7-8.2); BASOPHILS % (AUTO) 0.9 % (0-2); EOSINOPHILS % (AUTO) 3.1 % (0-6); HEMATOCRIT 42.3 % (37.9-51.0); HEMOGLOBIN 14.1 g/dL (13.5-17.0); LYMPHOCYTES % (AUTO) 17.9 % (13-45); MEAN CORPUSCULAR HEMOGLOBIN 27.6 pg (27.0-33.4); MEAN CORPUSCULAR HGB CONC 33.2 g/dL (32.0-36.0); MEAN CORPUSCULAR VOLUME 83 fl (80-97); MONOCYTES % (AUTO) 8.2 % (3-13); PLATELET COUNT 314 10^3/uL (150-450); RED BLOOD COUNT 5.09 10^6/uL (4.35-5.55); RED CELL DISTRIBUTION WIDTH 14.6 % (11.5-14.0); SEGMENTED NEUTROPHILS % (AUTO) 69.9 % (42-78); TOTAL CELLS COUNTED % (AUTO) 100 %; WHITE BLOOD COUNT 11.5 10^3/uL (4.0-10.5)
[2017-10-08 04:57] LABS: ARTERIAL BLOOD BASE EXCESS -1.6 mmol/L; ARTERIAL BLOOD H2CO3 0.97 mmol/L (1.05-1.35); ARTERIAL BLOOD HCO3 21.5 mmol/L (20-26); ARTERIAL BLOOD O2 SATURATION 95.1 % (94-98); ARTERIAL BLOOD PCO2 32.2 mmHg (35-45); ARTERIAL BLOOD PH 7.44 (7.35-7.45); ARTERIAL BLOOD PO2 71.4 mmHg (80-100); ARTERIAL BLOOD TOTAL CO2 22.5 mmol/L (23-27)
[2017-10-08 04:59] LABS: ARTERIAL BLOOD FIO2 ROOM AIR
[2017-10-08] MEDS: ACETYLCYSTEINE 20% SOLN 800 MG/4 ML VIAL.NEB NEB SCH (08:19)
[2017-10-08] MEDS: LEVALBUTEROL HCL NEB 0.63 MG/3 ML AMPUL NEB PRN (08:19)
--- NOTE | 2017-10-08 09:21 | PDOC DISCHARGE SUMMARY ---
General - Admit/Disc Date/PCP Admission Date/Primary Care Provider: 10/02/17 13:26 Dr Cochran Discharge Date: 10/08/17 - Discharge Diagnosis (1) Abnormal EKG Is this a current diagnosis for this admission?: Yes (2) Elevated troponin I level Is this a current diagnosis for this admission?: Yes (3) Pneumonia Is this a current diagnosis for this admission?: Yes (4) Sepsis Is this a current diagnosis for this admission?: No (5) Sinus tachycardia Is this a current diagnosis for this admission?: Yes (6) Acute respiratory failure with hypoxia Is this a current diagnosis for this admission?: Yes (7) TRISH (obstructive sleep apnea) Is this a current diagnosis for this admission?: Yes (8) Hyperlipidemia Is this a current diagnosis for this admission?: Yes - Additional Information Resuscitation Status: Full Code Discharge Diet: Cardiac Prescriptions: Atorvastatin Calcium [Lipitor 80 mg Tablet] 80 mg PO QHS 30 Days #30 tablet Aspirin [Ecotrin 325 mg EC Tablet] 325 mg PO DAILY 30 Days #30 tabec Cefpodoxime Proxetil [Vantin 200 mg Tablet] 1 tab PO Q12 7 Days #14 tab Lactobacillus Acidophilus [Bacid 250 mg Tablet] 500 mg PO BID #20 tab Levofloxacin [Levaquin 750 mg Tablet] 750 mg PO DAILY@1500 #7 tablet Lisinopril [Prinivil 10 mg Tablet] 10 mg PO Q12 30 Days #60 tablet Metoprolol Succinate [Toprol Xl 25 mg Tab.sr] 25 mg PO Q12 30 Days #60 tab.sr.24h Home Medications: Aspirin [Ecotrin 325 mg EC Tablet] 325 mg PO DAILY 30 Days #30 tabec 10/08/17 Atorvastatin Calcium [Lipitor 80 mg Tablet] 80 mg PO QHS 30 Days #30 tablet Cefpodoxime Proxetil [Vantin 200 mg Tablet] 1 tab PO Q12 7 Days #14 tab Lactobacillus Acidophilus [Bacid 250 mg Tablet] 500 mg PO BID #20 tab 10/08/17 Levofloxacin [Levaquin 750 mg Tablet] 750 mg PO DAILY@1500 #7 tablet 10/08/17 Lisinopril [Prinivil 10 mg Tablet] 10 mg PO Q12 30 Days #60 tablet 10/08/17 Metoprolol Succinate [Toprol Xl 25 mg Tab.sr] 25 mg PO Q12 30 Days #60 tab.sr.24h 10/08/17 History of Present Illness Patient complains of: shortness of breath History of Present Illness: ZULEIMA BAILEY 32-year-old male with no past medical history no medications who presented to the hospital with a 2 day history of sudden onset shortness of breath, dry cough and chest tightness. He reports feeling feverish. 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 Does not smoke. Denies any chemical or smoke exposure. No associated joint swelling pain or rash. In the emergency room he was found to have diffuse infiltrates on chest x-ray. CT angiogram of the chest did not show pulmonary embolism. He was treated with IV fluids and Rocephin. Hospital Course Hospital Course: (1) Abnormal EKG Sinus tachycardia; peaked T's suggestive of ischemia Patient was followed by Dr. Cochran Patient was treated with metoprolol Ecotrin Nitropaste lisinopril And Lovenox prophylaxis Troponins in a downward trend 10/02/17 10/02/17 10/02/17 10:53 16:00 20:31 Troponin I 0.270 0.396 0.273 10/03/17 10/03/17 10/05/17 02:34 08:43 03:58 Troponin I 0.279 0.189 0.124 10/07/17 04:08 Troponin I 0.089 Patient did not have any chest pain Patient will be scheduled for outpatient Lexiscan stress test after discharge (2) Elevated troponin I level Likely acute non-STEMI type II secondary to hypoxemia and pneumonia An echocardiogram was performed; it did not show wall motion abnormalities LVEF was normal with moderate concentric ventricular hypertrophy and grade 2/6 diastolic dysfunction troponins in downward trend Patient would be scheduled for stress testing as an outpatient with Dr. Feng next week (3) Pneumonia Community-acquired pneumonia Pneumonia was present at time of admission No sputum is available Patient improved with Levaquin and ceftriaxone IV He will be discharged on Levaquin and Ceftin p.o. for another week (4) Sepsis Secondary to pneumonia resolved (5) Sinus tachycardia Secondary to pneumonia and hypoxemia resolved (6) Acute respiratory failure with hypoxia Secondary to pneumonia resolved Patient was initially on BiPAP support His oxygenation at discharge is adequate on room air (7) TRISH (obstructive sleep apnea) Patient to be scheduled for sleep study in 2-4 weeks after discharge (8) Hyperlipidemia Patient was discharged on Lipitor 10/06/17 04:04 Triglycerides 232 H Cholesterol 268.23 H LDL Cholesterol Direct 237 H VLDL Cholesterol 46.4 H HDL Cholesterol 17 L Physical Exam Vital Signs: Temp Pulse Resp BP Pulse Ox 98.2 F 80 25 H 151/78 H 98 10/08/17 04:00 10/08/17 07:56 10/08/17 00:15 10/08/17 05:38 10/08/17 00:15 Intake & Output 10/07/17 10/08/17 10/09/17 00:59 00:59 00:59 Intake Total 882 683 Output Total 2058 3920 350 Balance -1168 -767 -350 Weight 125.7 kg 124.9 kg General appearance: PRESENT: no acute distress, well-developed, well-nourished Head exam: PRESENT: atraumatic, normocephalic Eye exam: PRESENT: conjunctiva pink, EOMI, PERRLA. ABSENT: scleral icterus Neck exam: ABSENT: carotid bruit, JVD, lymphadenopathy, thyromegaly Respiratory exam: PRESENT: clear to auscultation hanesl. ABSENT: rales, rhonchi, wheezes Cardiovascular exam: PRESENT: RRR. ABSENT: diastolic murmur, rubs, systolic murmur Pulses: PRESENT: normal dorsalis pedis pul GI/Abdominal exam: PRESENT: normal bowel sounds, soft. ABSENT: distended, guarding, mass, organolmegaly, rebound, tenderness Extremities exam: PRESENT: full ROM. ABSENT: calf tenderness, clubbing, pedal edema Musculoskeletal exam: PRESENT: ambulatory, full ROM Neurological exam: PRESENT: alert, awake, oriented to person, oriented to place , oriented to time, oriented to situation, CN II-XII grossly intact. ABSENT: motor sensory deficit Results Laboratory Results: 10/08/17 03:50 10/06/17 04:04 10/08/17 10/08/17 03:50 04:45 WBC 11.5 H RBC 5.09 Hgb 14.1 Hct 42.3 MCV 83 MCH 27.6 MCHC 33.2 RDW 14.6 H Plt Count 314 Seg Neutrophils % 69.9 Lymphocytes % 17.9 Monocytes % 8.2 Eosinophils % 3.1 Basophils % 0.9 Absolute Neutrophils 8.1 Absolute Lymphocytes 2.1 Absolute Monocytes 0.9 Absolute Eosinophils 0.4 Absolute Basophils 0.1 Carbonic Acid 0.97 L HCO3/H2CO3 Ratio 22:1 ABG pH 7.44 ABG pCO2 32.2 L ABG pO2 71.4 L ABG HCO3 21.5 ABG O2 Saturation 95.1 ABG Base Excess -1.6 FiO2 ROOM AIR 10/02/17 16:00 Blood Blood Culture - Final NO GROWTH IN 5 DAYS 10/02/17 14:09 Blood Blood Culture - Final NO GROWTH IN 5 DAYS 10/02/17 10/02/17 10/02/17 16:00 16:00 20:31 Creatine Kinase 785 H 660 H CK-MB (CK-2) 12.90 H Troponin I 0.396 NT-Pro-B Natriuret Pep 10/02/17 10/03/17 10/03/17 20:31 02:34 02:34 Creatine Kinase 523 H CK-MB (CK-2) 12.10 H 10.00 H Troponin I 0.273 0.279 NT-Pro-B Natriuret Pep 10/03/17 10/03/17 10/03/17 02:34 08:43 08:43 Creatine Kinase 413 H CK-MB (CK-2) 9.81 H Troponin I 0.189 NT-Pro-B Natriuret Pep 640 H 10/05/17 10/07/17 03:58 04:08 Creatine Kinase CK-MB (CK-2) Troponin I 0.124 0.089 NT-Pro-B Natriuret Pep 182 H Impressions: Chest/Abdomen CTA 10/02/17 10:53 IMPRESSION: Bilateral diffuse pulmonary infiltrates with nodularity in consolidation. Differential considerations include infectious etiologies, pulmonary edema or ARDS. Hypersensitivity pneumonitis considered less likely given absence of air trapping. Chest X-Ray 10/06/17 06:00 IMPRESSION: 1. Diffuse patchy bilateral airspace opacities are stable. Qualifiers - * PATIENT BEING DISCHARGED WITH ANY OF THE FOLLOWING DIAGNOSIS: No, AL VTE patient discharged on overlapping Therapy?: No AL Pt being discharged on Aspirin therapy?: Yes AL Pt being discharged on Statins?: Yes AL Pt discharged ACEI/ARBS?: Yes
--- NOTE | 2017-10-08 09:53 | RADIOLOGY REPORT (SQ) ---
EXAM DESCRIPTION: CHEST 2 VIEWS COMPLETED DATE/TIME: 10/08/2017 9:33 am REASON FOR STUDY: fup pneumonia COMPARISON: Chest film 10/06/2017, 10/03/2017, 10/02/2017 CT angio chest 10/02/2017 EXAM PARAMETERS: NUMBER OF VIEWS: two views TECHNIQUE: Digital Frontal and Lateral radiographic views of the chest acquired. RADIATION DOSE: NA LIMITATIONS: none FINDINGS: LUNGS AND PLEURA: Diffuse bilateral airspace disease seen on chest films and CT 10/02/2017 has cleared. No pleural effusions. No pneumothorax. MEDIASTINUM AND HILAR STRUCTURES: No masses or contour abnormalities. HEART AND VASCULAR STRUCTURES: Moderate cardiomegaly. BONES: No acute findings. HARDWARE: None in the chest. OTHER: No other significant finding. IMPRESSION: Moderate cardiomegaly. No focal infiltrates. TECHNICAL DOCUMENTATION: JOB ID: [id number] [employer]- All Rights Reserved Reading location - IP/workstation name: [facility]
[2017-10-08] MEDS: LISINOPRIL 10 MG TABLET PO SCH ×2 (11:53→21:38)
[2017-10-08] MEDS: DOCUSATE SODIUM 100 MG CAPSULE PO SCH ×2 (11:53→17:55)
[2017-10-08] MEDS: ASPIRIN 325 MG TABLET, ENT COATED PO SCH (11:53)
[2017-10-08] MEDS: METOPROLOL SUCCINATE 25 MG TAB.SR.24H PO SCH ×2 (11:54→21:42)
[2017-10-08] MEDS: GUAIFENESIN 600 MG TABLET.SA PO SCH ×2 (11:54→21:37)
[2017-10-08] MEDS: FAMOTIDINE 20 MG TABLET PO SCH ×2 (11:54→21:37)
[2017-10-08] MEDS: LACTOBACILLUS ACIDOPHILUS 250 MG TAB PO SCH ×2 (11:55→17:54)
[2017-10-08] MEDS: ENOXAPARIN SODIUM INJ 40 MG/0.4 ML DISP.SYRIN SUBCUT SCH (11:56)
[2017-10-08] MEDS: CEFTRIAXONE SODIUM 1,000 MG in DEXTROSE 5%-WATER 50 ML IV SCH (11:58)
[2017-10-08] MEDS: LEVOFLOXACIN 750 MG TABLET PO SCH (16:28)
--- NOTE | 2017-10-08 19:59 | PROGRESS NOTE E ---
Progress Note NAME: ZULEIMA BAILEY : 1985 AGE: 32Y DATE: 10/08/2017 ROOM: 535 SUBJECTIVE: Note that the patient denies any shortness of breath or chest pain or discomfort. There is no PND, orthopnea. The patient is ambulating without any symptoms. There is no arrhythmia seen on the monitor. There are no anginal symptoms. There is no leg edema. There are no TIA or CVA symptoms. OBJECTIVE: GENERAL: On examination the patient is morbidly obese and in no acute distress. VITAL SIGNS: He is afebrile with a temperature of 98.2 degrees Fahrenheit, pulse is 76 beats per minute, blood pressure 144/77, respirations are 18 per minute, O2 saturations are 98% on 1 liter nasal cannula. HEENT: Head is atraumatic, normocephalic. Eyes: Pupils are equal, round, regular, reactive to light and accommodation. Extraocular movements are normal. There is no conjunctival pallor. There is no scleral icterus. ENT is negative. NECK: Supple. There is no JVD. Carotids are equal. There is no bruit. There is no lymphadenopathy. There is no goiter. Trachea central. LUNGS: Clear to auscultation and percussion. There are no rales, rhonchi, or wheezing. There is no chest wall tenderness. HEART: S1, S2 is heard. There is no S3 gallop. There is no S4 gallop. There is a systolic murmur in the left sternal border and the apex. There is no rub. ABDOMEN: Soft, obese, nontender. There is no hepatosplenomegaly. Bowel sounds are well heard. EXTREMITIES: Femorals are diminished. Leg femorals are deep. Leg pulses are slightly diminished. There are no femoral bruits. There is no DVT or cellulitis. There is no cyanosis or clubbing. There is no calf tenderness. CENTRAL NERVOUS SYSTEM: The patient is conscious, awake, alert, oriented x3 with no focal deficit. PSYCHIATRIC: The patient's judgment and insight are intact. His affect is normal. INTAKE/OUTPUT: The patient's 24 hour intake is 683 mL, output is 1150 mL. DIAGNOSTICS: The patient's chest x-ray PA and lateral show clearing of the pneumonia. There is no heart failure. The patient's white count is 11,500; hemoglobin is 14.1; hematocrit is 42.3; platelet count is 214,000. IMPRESSION: 1. BILATERAL PNEUMONIA. At present resolved. Chest x-ray shows clearing of the pneumonic process. 2. ELEVATED TROPONIN I, MOST LIKELY SECONDARY TO INFECTION, SEPSIS, AND CONCENTRIC AERATION. No definite evidence of non-ST elevation [place]. 3. ABNORMAL EKG WITH LEFT VENTRICULAR HYPERTROPHY STRAIN PATTERN. Cannot exclude ischemia. The patient will be having an IV Lexiscan Cardiolite stress test tomorrow morning. 4. SINUS TACHYCARDIA, RESOLVED. 5. CHEST TIGHTNESS, RESOLVED. 6. SEPSIS, RESOLVED. 7. HYPERTENSION. Blood pressure is fairly well controlled on lisinopril 10 mg p.o. q.12 hours, will increase as tolerated. 8. HYPERLIPIDEMIA AND HYPERTRIGLYCERIDEMIA WITH HIGH TRIGLYCERIDES AND HIGH LDL LEVELS AND LOW HDL LEVELS. Strict low fat, low cholesterol diet. 9. MORBID OBESITY. RECOMMENDATION: The patient will have an IV Lexiscan Cardiolite stress test. Continue current medications. We will increase the lisinopril if needed, checking on the patient's blood pressure. Once the stress test is done and if the stress test is negative would encourage the patient to increase activity, exercise, and walking to lose weight. The patient may need an outpatient sleep study since he has symptoms of this and he is morbidly obese. TIME SPENT: Note 30 minutes spent on this patient with more than 50% of the time spent on direct patient care. His medications have been reviewed. Discussed the case with the attending physician on the case. The patient's discharge will be postponed until after the patient's stress test tomorrow. Medical decision making is of moderate complexity. DICTATING PHYSICIAN: YANET WADSWORTH M.D. [id number] PHY#: [id number] ID: [id number] JOB#: [id number] ACCT: [id number] cc: > YAIRD
[2017-10-08] MEDS: ATORVASTATIN CALCIUM 80 MG TABLET PO SCH (21:37)
[2017-10-09] MEDS: NITROGLYCERIN 2% OINTMENT 1 GM PACKET TP SCH ×2 (02:22→11:18)
[2017-10-09] MEDS ORDERED: REGADENOSON INJ 0.4 MG/5 ML DISP.SYRIN IV ONE (09:41)
[2017-10-09] MEDS: FAMOTIDINE 20 MG TABLET PO SCH (11:07)
[2017-10-09] MEDS: METOPROLOL SUCCINATE 25 MG TAB.SR.24H PO SCH (11:07)
[2017-10-09] MEDS: GUAIFENESIN 600 MG TABLET.SA PO SCH (11:07)
[2017-10-09] MEDS: ASPIRIN 325 MG TABLET, ENT COATED PO SCH (11:08)
[2017-10-09] MEDS: LACTOBACILLUS ACIDOPHILUS 250 MG TAB PO SCH (11:08)
[2017-10-09] MEDS: LISINOPRIL 10 MG TABLET PO SCH (11:09)
[2017-10-09] MEDS: ENOXAPARIN SODIUM INJ 40 MG/0.4 ML DISP.SYRIN SUBCUT SCH (11:18)
[2017-10-09] MEDS: DOCUSATE SODIUM 100 MG CAPSULE PO SCH (11:18)
--- NOTE | 2017-10-09 12:31 | Progress Note ---
Provider Note Provider Note: Patient will be discharged home. Please refer to discharge summary
[2017-10-09 13:10] VITALS: BP 138/54
--- NOTE | 2017-10-09 14:03 | DRAGON STRESS TEST REPORT ---
Intravenous Lexiscan Cardiolite stress test using single photon emmision computerized tomography. Date of procedure: 10/09/2017. Ordering Provider: Dr. Geovanny Mcnamara. Patient's status: In Patient Indication: Abnormal EKG, and elevated troponin coronary risk factors: Hypertension, hyperlipidemia, and family history of coronary artery disease. Resting EKG: Sinus Rhythm. LVH with strain pattern. Cannot exclude inferolateral ischemia. Stress EKG[ No changes of ischemia. The patient had no chest pain or discomfort, and there were no arrhythmias seen. Reason for termination: Protocol. Conclusions: Normal EKG and hemodynamic response to IV Lexiscan. Nuclear data: At rest the patient was given 15.21 millicuries of technetium 99m sestamibi injected intravenously. As per protocol rest non gated SPECT images were obtained. Subsequently the patient was given intravenous Lexiscan at a dose of 0.4 mg in 5 mL intravenously, followed by flush with normal saline. Subsequently the stress dose of 47.7 millicuries of technetium 99m sestamibi was injected intravenously. As per protocol stress gated images were obtained. Nuclear interpretation: Review of images showed that there was a perfusion defect of the basal inferolateral wall in both the rest and stress images. This area had normal motion contraction and thickening, and hence this is a soft tissue attenuation artifact. The rest of the segments of the myocardium had normal perfusion at rest, and normal perfusion post stress with IV Lexiscan. All segments of the myocardium had normal motion, contraction, and thickening by gated study. T. I D. ratio was normal at 1.17. Computer read rest, and stress left ventricular ejection fraction were 48 %, and 35 %, respectively. Visually both the stress and rest ejection fractions were normal, and greater than 55%. Correlate with echocardiographic left ventricular ejection fraction. Conclusion: 1. There is no scintigraphic evidence of Lexiscan induced myocardial ischemia. 2. There is no scintigraphic evidence of myocardial infarction/scar. Recommendations: Aggressive risk factor modification, and treating the underlying co- morbidities. MTDD
--- NOTE | 2017-10-09 21:45 | PROGRESS NOTE E ---
Progress Note NAME: ZULEIMA BAILEY : 1985 AGE: 32Y DATE: 10/09/2017 ROOM: 535 SUBJECTIVE: The patient denies any further shortness of breath, cough or chest pain or discomfort. There is no PND, orthopnea. There is no arrhythmia seen on the monitor. There is no pedal edema. There are no TIA or CVA symptoms. The patient does have symptoms suggestive of sleep apnea and he is morbidly obese. The patient underwent an IV Lexiscan Cardiolite Stress Test which was uneventful. See results below. OBJECTIVE: GENERAL: On examination, the patient is morbidly obese in no acute distress. He is well-groomed. VITAL SIGNS: He is afebrile with a temperature of 98.2 degrees Fahrenheit, pulse is 72 beats per minute, blood pressure 134/69, respirations are 18 per minute, O2 saturations are 98% on room air. HEENT: Head is atraumatic, normocephalic. Eyes: Pupils are equal, round, regular, reactive to light and accommodation. Extraocular movements are normal. There is no conjunctival pallor. There is no scleral icterus. ENT is negative. NECK: Supple. There is no JVD. Carotids are equal. There is no bruit. There is no lymphadenopathy. There is no goiter. Trachea central. LUNGS: Clear to auscultation and percussion. There are no rales, rhonchi, or wheezing. There is no chest wall tenderness. HEART: S1, S2 is heard. There is no S3 gallop. There is no S4 gallop. There is a systolic murmur in the left sternal border and the apex. There is no rub. ABDOMEN: Soft, obese, nontender. There is no hepatosplenomegaly. Bowel sounds are well heard. EXTREMITIES: Femorals are diminished. Leg pulses are diminished Femorals are deep. There are no femoral bruits. There is no DVT or cellulitis. There is no cyanosis or clubbing. There is no calf tenderness. CENTRAL NERVOUS SYSTEM: The patient is conscious, awake, alert, oriented x3 with no focal deficit. PSYCHIATRIC: The patient's judgment and insight are intact. His affect is normal. INTAKE/OUTPUT: The patient's intake and output is not accurate. The patient's Cardiolite stress test shows no scintigraphic evidence of Lexiscan induced myocardial ischemia. There is no scintigraphic evidence of myocardial infarction *------*. This has been discussed with the patient. IMPRESSION: 1. BILATERAL PNEUMONIA, RESOLVED. 2. ELEVATED TROPONIN I. PATIENT IS NEGATIVE ON CARDIOLITE STRESS TEST FOR ISCHEMIA OR VA. THE CAUSE OF THE PATIENT'S ELEVATED TROPONIN I IS DUE TO HIS SEVERE LVH AND SEPSIS/PNEUMONIA. No evidence of non-ST elevation VA. 3. ABNORMAL EKG, MOST LIKELY LEFT VENTRICULAR HYPERTROPHY STRAIN. 4. HYPERTENSION, WELL CONTROLLED. 5. HYPERLIPIDEMIA. 6. MODERATE OBESITY. 7. SYMPTOMS SUGGESTIVE OF SLEEP APNEA. RECOMMENDATION: The stress test was discussed with patient. Continue the patient on current medication which is beta-luke, aspirin, lisinopril. The patient recommended to have an outpatient sleep study. The patient states he would like to follow up with me. I will give him my cell number and will set up an appointment for the patient to follow up with me. Discussed the case with hospitalist. Note, medical decision making is of moderate complexity and involved discussions of the test with the patient and future tests *------* that is needed. Also, the importance of taking lisinopril and metoprolol has been discussed with patient to see if this could regress the patient's left ventricular hypertrophy. TIME SPENT: Note 35 minutes spent on this patient with more than 50% of the time spent on direct patient care. His medications have been reviewed. Discussed with the attending physician. The patient is ready to be discharged. Will follow the patient up in outpatient. Will sign off. Thanking you for allowing me to participate in the care of this patient. DICTATING PHYSICIAN: YANET WADSWORTH M.D. [id number] AUREA#: [id number] ID: [id number] JOB#: [id number] ACCT: [id number] cc: >
--- NOTE | 2017-10-10 20:28 | PDOC PROGRESS REPORT ---
Subjective Progress Note for:: 10/08/17 Subjective:: I am better Reason For Visit: PNEUMONIA, ACUTE HYPOXIC RESPIRATORY FAILURE Physical Exam Vital Signs: Temp Pulse Resp BP Pulse Ox 98.2 F 80 25 H 151/78 H 98 10/08/17 04:00 10/08/17 07:56 10/08/17 00:15 10/08/17 05:38 10/08/17 00:15 Intake & Output 10/07/17 10/08/17 10/09/17 06:59 06:59 06:59 Intake Total 682 683 Output Total 2300 1150 Balance -1618 -467 Weight 124.8 kg 124.9 kg General appearance: PRESENT: no acute distress, cooperative, disheveled, morbidly obese Head exam: PRESENT: atraumatic, normocephalic Eye exam: PRESENT: conjunctiva pale, EOMI, PERRLA. ABSENT: nystagmus, periorbital swelling, scleral icterus Mouth exam: PRESENT: moist, neck supple, tongue midline Neck exam: ABSENT: carotid bruit, JVD, lymphadenopathy, thyromegaly, tracheal deviation, tracheostomy Respiratory exam: PRESENT: decreased breath sounds, prolonged expiratory phas, rales, rhonchi, unlabored. ABSENT: retraction, stridor, tachypnea Cardiovascular exam: PRESENT: RRR, +S1, +S2, tachycardia Pulses: PRESENT: normal radial pulses GI/Abdominal exam: PRESENT: normal bowel sounds, soft Extremities exam: ABSENT: calf tenderness, clubbing, full ROM, joint swelling Musculoskeletal exam: PRESENT: ambulatory. ABSENT: deformity, dislocation Neurological exam: PRESENT: alert, awake Psychiatric exam: PRESENT: normal mood Skin exam: PRESENT: dry, warm Results Laboratory Results: 10/08/17 03:50 10/06/17 04:04 10/08/17 10/08/17 03:50 04:45 WBC 11.5 H RBC 5.09 Hgb 14.1 Hct 42.3 MCV 83 MCH 27.6 MCHC 33.2 RDW 14.6 H Plt Count 314 Seg Neutrophils % 69.9 Lymphocytes % 17.9 Monocytes % 8.2 Eosinophils % 3.1 Basophils % 0.9 Absolute Neutrophils 8.1 Absolute Lymphocytes 2.1 Absolute Monocytes 0.9 Absolute Eosinophils 0.4 Absolute Basophils 0.1 Carbonic Acid 0.97 L HCO3/H2CO3 Ratio 22:1 ABG pH 7.44 ABG pCO2 32.2 L ABG pO2 71.4 L ABG HCO3 21.5 ABG O2 Saturation 95.1 ABG Base Excess -1.6 FiO2 ROOM AIR 10/02/17 16:00 Blood Blood Culture - Final NO GROWTH IN 5 DAYS 10/02/17 14:09 Blood Blood Culture - Final NO GROWTH IN 5 DAYS 10/02/17 10/02/17 10/02/17 16:00 16:00 20:31 Creatine Kinase 785 H 660 H CK-MB (CK-2) 12.90 H Troponin I 0.396 NT-Pro-B Natriuret Pep 10/02/17 10/03/17 10/03/17 20:31 02:34 02:34 Creatine Kinase 523 H CK-MB (CK-2) 12.10 H 10.00 H Troponin I 0.273 0.279 NT-Pro-B Natriuret Pep 10/03/17 10/03/17 10/03/17 02:34 08:43 08:43 Creatine Kinase 413 H CK-MB (CK-2) 9.81 H Troponin I 0.189 NT-Pro-B Natriuret Pep 640 H 10/05/17 10/07/17 03:58 04:08 Creatine Kinase CK-MB (CK-2) Troponin I 0.124 0.089 NT-Pro-B Natriuret Pep 182 H Impressions: Chest/Abdomen CTA 10/02/17 10:53 IMPRESSION: Bilateral diffuse pulmonary infiltrates with nodularity in consolidation. Differential considerations include infectious etiologies, pulmonary edema or ARDS. Hypersensitivity pneumonitis considered less likely given absence of air trapping. Chest X-Ray 10/08/17 09:17 IMPRESSION: Moderate cardiomegaly. No focal infiltrates. Assessment & Plan - Diagnosis (1) Acute respiratory failure with hypoxia Is this a current diagnosis for this admission?: Yes Plan: resolved (2) Pneumonia Qualifiers: Pneumonia type: due to unspecified organism Laterality: bilateral Lung location: unspecified part of lung Qualified Code(s): J18.9 - Pneumonia, unspecified organism Is this a current diagnosis for this admission?: Yes Plan: improving (3) Sepsis Qualifiers: Sepsis type: sepsis due to unspecified organism Qualified Code(s): A41.9 - Sepsis, unspecified organism Is this a current diagnosis for this admission?: No (4) Sinus tachycardia Is this a current diagnosis for this admission?: Yes Plan: Being followed by cardiology, not currently tachycardic. Hypertriglyceridemia hyperactive cholesterolemia with a low HDL this will be maxed out on statins
== END 2017-10-09 13:47 | disposition home or self-care (01) | DRG 871 ==
LOC: ER 10:31 → EH 13:26 → 3W 16:55 → ICU 19:45 → 5 10-08 19:37
PROVIDERS: ADMIT Internal Medicine; ATTEND Internal Medicine
PROC: 5A09557 Assistance with Respiratory Ventilation, Greater than 96 Consecutive Hours, Continuous Positive Airway Pressure (ICD-10-PCS; principal; 2017-10-02)
DX: A41.9 Sepsis, unspecified organism (principal); J96.01 Acute respiratory failure with hypoxia; I21.A1 Myocardial infarction type 2; J18.9 Pneumonia, unspecified organism; Z68.41 Body mass index [BMI] 40.0-44.9, adult; R07.89 Other chest pain; R00.0 Tachycardia, unspecified; R94.31 Abnormal electrocardiogram [ECG] [EKG]; E78.5 Hyperlipidemia, unspecified; G47.33 Obstructive sleep apnea (adult) (pediatric); E66.01 Morbid (severe) obesity due to excess calories
CPT/HCPCS: 36415; 71045; 71046; 71275; 78452; 80048; 80053; 80061; 80307; 81001; 82550; 82553; 82803; 83036; 83605; 83735; 83880; 84100; 84439; 84443; 84484; 85025; 85610; 85730; 86225; 86235; 86430; 86603; 86738; 87040; 87070; 87205; 87486; 87804; 93005; 93010; 93017; 93306; 94660; 94667; 94668; 94799; 96365; 99285; A9500; J0360; J0696; J1644; J1650; J1940; J1956; J2785; J3490; J7030; J7614; Q9969